=== PATIENT | male | born 1945 | race Caucasian/White ===

== ENCOUNTER → 2018-03-12 10:45 | Outpatient (BNVA) | payer MEDICARE, SELFPAY | PROVIDERS: PCP Family Medicine; Visit Provider Internal Medicine Interventional Cardiology | DX: I25.810 Atherosclerosis of coronary artery bypass graft(s) without angina pectoris (principal); Z95.0 Presence of cardiac pacemaker; R06.02 Shortness of breath; R53.83 Other fatigue; E78.5 Hyperlipidemia, unspecified; Q23.1 Congenital insufficiency of aortic valve; I70.0 Atherosclerosis of aorta; I10 Essential (primary) hypertension | CPT/HCPCS: 99214 ==

== ENCOUNTER 2018-03-12 11:42 | Outpatient (CLI) | payer MEDICARE, OTHER, SELFPAY | END 2018-03-12 12:02 | PROVIDERS: PCP Family Medicine; Visit Provider Internal Medicine Interventional Cardiology | DX: I25.10 Atherosclerotic heart disease of native coronary artery without angina pectoris (principal); I10 Essential (primary) hypertension; Z95.0 Presence of cardiac pacemaker | CPT/HCPCS: 93005; 93010 ==

== ENCOUNTER 2018-03-12 15:36 | Outpatient (CLI) | payer MEDICARE, SELFPAY ==
--- NOTE | 2018-03-12 12:04 | DI.RAD_ITS ---
SYMPTOM/DIAGNOSIS: CHEST PAIN, R07.9 PA AND LATERAL CHEST: Comparison is made with 12/19/14. The patient is now status post CABG and pacemaker placement. The heart size is normal. There is scarring at the left lung base. The right lung is clear. IMPRESSION: Left basilar scarring.
[2018-03-12 13:06] LABS: HCT 40.6 % (40.0-50.0); HGB 14.1 g/dL (13.5-17.5); Mean Corp. HGB Concentration 34.7 g/dL (32.0-36.0); Mean Corpuscular Hemoglobin 32.6 pg (27.0-33.0); Mean Platelet Volume 10.1 fL (8.0-11.0); Platelet Count 315 x1000/uL (130-400); RBC 4.32 m/cumm (4.50-6.00); RBC Distribution Width 12.5 % (11.8-14.1)
[2018-03-12 14:56] LABS: ALT 32 U/L (12-78); AST 22 U/L (15-37); Albumin 4.3 g/dL (3.4-5.0); Alkaline Phosphatase 93 U/L (46-116); Anion Gap 11.4 mmol/L (3-11); BUN 14 mg/dL (7-18); Bilirubin, Direct 0.15 mg/dL (0.00-0.20); Bilirubin, Total 0.7 mg/dL (0.2-1.0); CO2 26.6 mmol/L (21.0-32.0); CREATININE 0.97 mg/dL (0.70-1.30); Chloride 97 mmol/L (98-107); Potassium 4.7 mmol/L (3.5-5.1); Sodium 135 mmol/L (136-145); TSH 1.86 uIU/mL (0.358-3.74); Total Protein 7.7 g/dL (6.4-8.2)
[2018-03-12 15:09] LABS: Cholesterol 191 mg/dL (50-200); HDL Cholesterol 49 mg/dL (40-60); LDL CHOLESTEROL 96 mg/dL (<100); Triglyceride 340 mg/dL (30-150)
== END 2018-03-12 15:56 ==
PROVIDERS: PCP Family Medicine; Visit Provider Internal Medicine Interventional Cardiology
DX: I25.10 Atherosclerotic heart disease of native coronary artery without angina pectoris (principal); I10 Essential (primary) hypertension; E78.5 Hyperlipidemia, unspecified; R07.9 Chest pain, unspecified; Z95.1 Presence of aortocoronary bypass graft; J98.4 Other disorders of lung; Z95.0 Presence of cardiac pacemaker; R06.02 Shortness of breath; R53.83 Other fatigue; Q23.1 Congenital insufficiency of aortic valve; I70.0 Atherosclerosis of aorta
CPT/HCPCS: 36415; 80051; 80061; 80076; 83721; 84520; 85027; 99214; 71046; 82565; 84443; 93005; 93010

== ENCOUNTER 2018-03-21 00:02 | Outpatient (CLI) | payer MEDICARE, SELFPAY ==
--- NOTE | 2018-03-21 06:56 | MERGEMPI_ITS ---
*[facility]* *[facility]* [address] [place] [address] Myocardial Perfusion Imaging - SPECT Regadenoson Date of study: 03/21/2018 *PATIENT PRESENTATION* Height: 167.6cm (66in) Blood Pressure: Weight: 77.3kg (170lb) BSA: 1.91m^2 Referring physician: Kimo Winston Ordering physician: Mack Grayson MD Impressions: Abnormal study after pharmacologic stress. Summary: 1. Myocardial perfusion imaging: There is a small sized, mildly intense, fixed defect involving the septal and apical wall(s). . 2. The calculated left ventricular ejection fraction after stress: 55%. LV global systolic function is normal. There is dyskinesis involving the septal wall(s) of the left ventricle. 3. Baseline ECG: Ventricular paced rhythm. 4. Imaging information: gated. Image quality reduced due to diaphragmatic attenuation and subdiaphragmatic activity. Attenuation correction used. Indication: R06.02. History: Patient's presenting symptoms: asymptomatic. REASON FOR VISIT: PATIENT REPORTED MILD DYSPNEA ON EXERTION AND INCREASED FATIGUE DURING A CARDIOLOGY APPOINTMENT ON 03/12/18. EKG DURING THIS APPOINTMENT SHOWED VENTRICULAR PACING, RATE 98 BPM. 05/08/17 ECHOCARDIOGRAM: ESTIMATED EJECTION FRACTION WAS 55-60%. MILD HYPOKINESIS OF THE ANTEROSEPTAL AND APICAL MYOCARDIUM. MILD REGURGITATION OF AORTIC AND MITRAL VALVES. MILD-MODERATE REGURGITATION OF TRICUSPID VALVE. PAST MEDICAL HISTORY: CORONARY ARTERY DISEASE. NSTEMI NOVEMBER 2014. BRADYCARDIA AND WENCKEBACH TYPE BLOCK, S/P PACEMAKER (DDR MODE) PLACED DECEMBER 2014. HYPERTENSION. HYPERLIPIDEMIA. GOUT. ATHEROMATOUS AORTIC DISEASE NOTED ON 2014 JENNIFER. FAMILY HISTORY: FATHER, HEART DISEASE. SMOKING STATUS: 30 PACK YEAR SMOKING HISTORY. QUIT IN 1995. EXERCISE ROUTINE: DAILY RESISTANCE TRAINING WITH SOME CARDIO AT [facility] FOR THREE MONTHS OUT OF THE YEAR WHEN PATIENT IS IN [place]. Risk factors: Family history of coronary artery disease. Hypertension. Dyslipidemia. Cholesterol: 191mg/dl. HDL: 49mg/dl. LDL: 96mg/dl. Triglycerides: 340mg/dl. ALLERGIES: DEXTROMETHORPHAN, PHENYLEPHRINE. MEDICATIONS: METOPROLOL SUCCINATE ER 25MG, DAILY. LISINOPRIL 40MG, DAILY. ATORVASTATIN 40MG, DAILY. ASPIRIN 81MG, DAILY. AMLODIPINE 10MG, DAILY. Imaging Technique: Protocol: Minitradeadenoson. Acquisition: Gated SPECT; 1 day - rest/stress. The patient was imaged in the supine position. Attenuation correction used. Isotope administration: - Rest. Tc[99m]-sestamibi. Dose: 10mCi. Injection time: 09:05 AM. Injection to stress time: 00:45. - Stress. Tc[99m]-sestamibi. Dose: 32mCi. Injection time: 11:05 AM. 1-2 min before end of exercise Baseline ECG: VENTRICULAR PACED RHYTHM. HEART RATE 65 BPM. Ventricular paced rhythm. Stress protocol: +--------+--+ + + !Stage !HR!BP (mmHg) !Comments ! +--------+--+ + + !Baseline!65!144/82 (103)! ! +--------+--+ + + !1 min !85!144/78 (100)!Inject Regadenoson.! +--------+--+ + + !3 min !79!148/72 (97) ! ! +--------+--+ + + !6 min !72!132/66 (88) ! ! +--------+--+ + + * Stress results: The rate-pressure product for the peak heart rate and blood pressure was 80490in Hg/min. Stress ECG: STRESS TEST ENDED IN 6MIN WHEN ALL SYMPTOMS OF REGADENOSON INJECTION SUBSIDED. APPROPRIATE HEART RATE AND BLOOD PRESSURE RESPONSE TO REGADENOSON INJECTION. NO ECTOPY NOTED. NO ANGINA REPORTED. Myocardial perfusion: Imaging information: gated. Image quality reduced due to diaphragmatic attenuation and subdiaphragmatic activity. Left ventricular size is normal. There is a small sized, mildly intense, fixed defect involving the septal and apical wall(s). . Ventricular Function (Wall Motion): The calculated left ventricular ejection fraction after stress: 55%. LV global systolic function is normal. There is dyskinesis involving the septal wall(s) of the left ventricle. Study data: Kimo Winston MD supervised and was readily available during the procedure. This study was interpreted by [facility]. Study status: Routine. Consent: The risks, benefits, and alternatives to the procedure were explained to the patient and informed consent was obtained. Procedure: Initial setup. A baseline ECG was recorded. Surface ECG leads and manual cuff blood pressure measurements were monitored. Heart sounds: Normal. Lung sounds: Normal. Regadenoson stress test. Stress testing was performed, with regadenoson by intravenous bolus, for a total dose of 0.4mgover 10.00sec, followed by a 5ml saline flush. The infusion was terminated due to per protocol. Study completion: All catheters inserted during the procedure were removed. The patient tolerated the procedure well and was discharged from the lab. Discharge: The patient left the laboratory in stable condition. Birthdate: Patient birthdate: 1945. Sex: Gender: male. Study date: Study date: 03/21/2018. Study time: 06:56 AM. Signature Documentation: - The imaging portion of this study was interpreted by Nuclear Boiler Coverer Helper Kimo Winston MD. - The imaging portion of this study was interpreted by Nuclear Radiologist Pearl Campbell MD. Electronically signed by Kimo Winston 03/21/2018 15:29
[2018-03-21] MEDS: Regadenoson 0.4 MG/5 ML SYR IVP (10:51)
== END 2018-03-21 00:22 ==
PROVIDERS: PCP Family Medicine; Visit Provider Internal Medicine Interventional Cardiology
DX: R06.09 Other forms of dyspnea (principal); R53.83 Other fatigue; R94.30 Abnormal result of cardiovascular function study, unspecified; I25.2 Old myocardial infarction
CPT/HCPCS: 78452; 93016; 93018; 93017; J2785

== ENCOUNTER 2018-03-27 00:31 | Outpatient (CLI) | payer MEDICARE, SELFPAY ==
--- NOTE | 2018-03-27 14:00 | MERGE_ITS ---
*[facility]* *[facility]* [address] [place] [address] Date of study: 03/27/2018 Transthoracic Echocardiography M-mode, complete 2D, complete spectral Doppler, and color Doppler *STUDY CONCLUSIONS* Summary: 1. Left ventricle: The cavity size was normal. Wall thickness was normal. Systolic function was normal. The estimated ejection fraction was 55-60%. Wall motion was normal; there were no regional wall motion abnormalities. Findings consistent with diastolic dysfunction. There was no evidence of elevated ventricular filling pressure by Doppler parameters. 2. Ventricular septum: Septal motion showed abnormal function and dyssynergy. 3. Aortic valve: Bicuspid; mildly thickened, mildly calcified leaflets; anterior raphe present; fusion of the right-left coronary commissure. Valve mobility was restricted. There was mild stenosis. There was trivial regurgitation. Peak velocity (S): 1.8m/sec. Mean gradient (S): 7.1mm Hg. Valve area (VTI): 1.7cm^2. 4. Aortic root: The aortic root was mildly dilated. 5. Right ventricle: The cavity size was normal. Wall thickness was normal. Pacer wire noted in right ventricle. Systolic function was normal. 6. Right atrium: The atrium was dilated. 7. Pulmonary arteries: Pulmonary systolic pressure was within the normal range, in the range of 30mm Hg to 35mm Hg. *PATIENT PRESENTATION* Height: 167.6cm ((66in) ) S/D Pressure: 137 / 75 Weight: 77.1kg ((169.6lb) ) BSA: 1.91m^2 Test start time: 02:06 PM. Test stop time: 02:55 PM. ORDERING Mack Grayson MD REFERRING Mack Grayson MD PERFORMING Unknown PERFORMING [facility] PATIENT PLACEMENT COORDINATOR RT Michelle Dixon)(CT), [facility] *PROCEDURE DATA* Procedure information: This study was interpreted by [facility]. Pertinent images and digital data are archived for permanent storage and are available for subsequent review. Comparison was made to the study of 05/08/2017. Study status: Routine. Transthoracic echocardiography. M-mode, complete 2D, complete spectral Doppler, and color Doppler. A Transthoracic Echocardiogram was performed. Scanning was performed from the parasternal, apical, subcostal, and suprasternal notch acoustic windows. Images were obtained using an [id number] cardiac ultrasound machine. Image quality was adequate. Study completion: The patient tolerated the procedure well. There were no complications. History: PMH: SOB, CAD, BICUSPID AOV. *CARDIAC ANATOMY* Left ventricle: The cavity size was normal. Wall thickness was normal. Systolic function was normal. The estimated ejection fraction was 55-60%. Wall motion was normal; there were no regional wall motion abnormalities. Findings consistent with diastolic dysfunction. There was no evidence of elevated ventricular filling pressure by Doppler parameters. Aortic valve: Bicuspid; mildly thickened, mildly calcified leaflets; anterior raphe present; fusion of the right-left coronary commissure. Valve mobility was restricted. Doppler: There was mild stenosis. There was trivial regurgitation. VTI ratio of LVOT to aortic valve: 0.54. Valve area (VTI): 1.7cm^2. Indexed valve area (VTI): 0.9cm^2/m^2. Peak velocity ratio of LVOT to aortic valve: 0.47. Valve area (Vmax): 1.5cm^2. Indexed valve area (Vmax): 0.8cm^2/m^2. Mean velocity ratio of LVOT to aortic valve: 0.49. Valve area (Vmean): 1.5cm^2. Indexed valve area (Vmean): 0.8cm^2/m^2. Mean gradient (S): 7.1mm Hg. Peak gradient (S): 12.4mm Hg. Aorta: Aortic root: The aortic root was mildly dilated. Ascending aorta: The ascending aorta was normal in size. Aortic arch: The aortic arch was normal in size. Mitral valve: Structurally normal valve. Mobility was not restricted. Doppler: Transvalvular velocity was within the normal range. There was no evidence for stenosis. There was no significant regurgitation. Valve area by pressure half-time: 4.2cm^2. Indexed valve area by pressure half-time: 2.2cm^2/m^2. Left atrium: The atrium was normal in size. Right ventricle: The cavity size was normal. Wall thickness was normal. Pacer wire noted in right ventricle. Systolic function was normal. Ventricular septum: Septal motion showed abnormal function and dyssynergy. Pulmonic valve: Doppler: Transvalvular velocity was within the normal range. There was no evidence for stenosis. There was no significant regurgitation. Peak gradient (S): 2.8mm Hg. Tricuspid valve: Structurally normal valve. Doppler: Transvalvular velocity was within the normal range. There was no evidence for stenosis. There was trivial regurgitation. Pulmonary artery: Pulmonary systolic pressure was within the normal range, in the range of 30mm Hg to 35mm Hg. Right atrium: The atrium was dilated. Pericardium: There was no pericardial effusion. Systemic veins: Inferior vena cava: Well visualized. The vessel was patent and normal in size. The respirophasic diameter changes were in the normal range (greater than or equal to 50%). Baseline ECG: Paced rhythm. Measurements Left ventricle Value 05/08/2017 Reference LV ID, ED, PLAX 5.2 cm 4.8 3.5 - 6.0 LV ID, ES, PLAX 3.6 cm 3.2 2.1 - 4.0 LV PW thickness, ED, PLAX 1.0 cm 1.0 LV end-diastolic volume, 75 ml 74 1-p A2C LV ejection fraction, 1-p 55 % 56 A2C LV end-diastolic volume, 68 ml 66 1-p A4C LV ejection fraction, 1-p 50 % 52 A4C LV e', lateral 0.066 m/sec LV E/e', lateral 10 LV e', medial 0.068 m/sec LV E/e', medial 9 LV e', average 0.067 m/sec LV E/e', average 10 Ventricular septum Value 05/08/2017 Reference IVS thickness, ED, PLAX 0.9 cm 1.0 LVOT Value 05/08/2017 Reference LVOT ID, A-P 2.0 cm 2.0 LVOT area 3.1 cm^2 3 LVOT peak velocity, S 0.83 m/sec 0.88 LVOT mean velocity, S 0.63 m/sec LVOT VTI, S 18.0 cm 17.8 LVOT peak gradient, S 2.7 mm Hg LVOT mean gradient, S 1.7 mm Hg 1.6 Stroke volume (SV), LVOT 55 ml DP Stroke index (SV/bsa), 29 ml/m^2 LVOT DP Aortic valve Value 05/08/2017 Reference Aortic valve peak 1.8 m/sec 1.6 velocity, S Aortic valve mean 1.29 m/sec 0.01 velocity, S Aortic valve VTI, S 33.0 cm Aortic mean gradient, S 7.1 mm Hg 5.6 Aortic peak gradient, S 12.4 mm Hg 10.1 VTI ratio, LVOT/AV 0.54 Aortic valve area, VTI 1.7 cm^2 1.8 Velocity ratio, peak, 0.47 0.55 LVOT/AV Aortic valve area, peak 1.5 cm^2 1.7 velocity Velocity ratio, mean, 0.49 LVOT/AV Aortic valve area, mean 1.5 cm^2 velocity Aortic valve area/bsa, 0.8 cm^2/m^2 mean velocity Aorta Value 05/08/2017 Reference Aortic root ID, ED 3.9 cm Ascending aorta ID, A-P, S 3.5 cm 3.4 RVOT Value 05/08/2017 Reference RVOT VTI, S 11.0 cm Left atrium Value 05/08/2017 Reference LA ID, A-P, ES 3.1 cm LA ID/bsa, A-P 1.6 cm/m^2 <=2.2 LA area, ES, A4C 17.9 cm^2 18 8.8 - 23.4 LA area, ES, A2C 16 cm^2 LA volume/bsa, ES, 1-p A4C 31 ml/m^2 LA volume, ES, 2-p 50 ml LA volume/bsa, ES, 2-p 26 ml/m^2 LA/aortic root ratio 0.79 0.86 Mitral valve Value 05/08/2017 Reference Mitral E-wave peak 0.65 m/sec 0.61 velocity Mitral A-wave peak 0.85 m/sec 0.69 velocity Mitral deceleration time 181 ms 232 150 - 230 Mitral pressure half-time 53 ms 67 Mitral E/A ratio, peak 0.76 0.88 Mitral valve area, PHT, DP 4.2 cm^2 3.3 Tricuspid valve Value 05/08/2017 Reference Tricuspid regurg peak 2.5 m/sec 2.3 velocity Tricuspid peak RV-RA 24.7 mm Hg 21.7 gradient Right atrium Value 05/08/2017 Reference RA area, ES, A4C (H) 20.5 cm^2 8.3 - 19.5 Pulmonic valve Value 05/08/2017 Reference Pulmonic peak gradient, S 2.8 mm Hg 2 Legend: (L) and (H) jeremi values outside specified reference range. I have personally reviewed the images and have reviewed and edited the reported findings. Electronically signed by Kimo Winston 03/27/2018 15:51
== END 2018-03-27 00:51 ==
PROVIDERS: PCP Family Medicine; Visit Provider Internal Medicine Interventional Cardiology
DX: R06.02 Shortness of breath (principal); I25.10 Atherosclerotic heart disease of native coronary artery without angina pectoris; I35.2 Nonrheumatic aortic (valve) stenosis with insufficiency; Q23.1 Congenital insufficiency of aortic valve; Z95.0 Presence of cardiac pacemaker; I10 Essential (primary) hypertension
CPT/HCPCS: 93306

== ENCOUNTER 2018-04-09 10:12 | Outpatient (CLI) | payer MEDICARE, OTHER, SELFPAY | END 2018-04-09 10:32 | PROVIDERS: PCP Family Medicine; Visit Provider Internal Medicine Interventional Cardiology | DX: I25.810 Atherosclerosis of coronary artery bypass graft(s) without angina pectoris (principal); Z95.0 Presence of cardiac pacemaker; R06.02 Shortness of breath; R53.83 Other fatigue; E78.5 Hyperlipidemia, unspecified; I35.9 Nonrheumatic aortic valve disorder, unspecified | CPT/HCPCS: 93005; 93010; 99213 ==

== ENCOUNTER 2018-08-27 10:13 | Outpatient (CLI) | payer MEDICARE, OTHER, SELFPAY ==
[2018-08-27 11:21] LABS: ALT 34 U/L (12-78); AST 26 U/L (15-37); Alkaline Phosphatase 84 U/L (46-116); Bilirubin, Total 0.6 mg/dL (0.2-1.0); Cholesterol 152 mg/dL (50-200); HDL Cholesterol 42 mg/dL (40-60); LDL CHOLESTEROL 77 mg/dL (<100); Total Protein 7.2 g/dL (6.4-8.2); Triglyceride 136 mg/dL (30-150)
[2018-08-27 11:29] LABS: Bilirubin, Direct 0.15 mg/dL (0.00-0.20)
== END 2018-08-27 10:33 ==
PROVIDERS: PCP Family Medicine; Visit Provider Internal Medicine Interventional Cardiology
DX: E78.5 Hyperlipidemia, unspecified (principal); I10 Essential (primary) hypertension; I25.10 Atherosclerotic heart disease of native coronary artery without angina pectoris
CPT/HCPCS: 36415; 80061; 80076; 83721

== ENCOUNTER 2018-09-10 08:04 | Outpatient (CLI) | payer MEDICARE, OTHER, SELFPAY | END 2018-09-10 08:24 | PROVIDERS: PCP Family Medicine; Visit Provider Internal Medicine Interventional Cardiology | DX: I25.10 Atherosclerotic heart disease of native coronary artery without angina pectoris (principal); Z95.0 Presence of cardiac pacemaker; I10 Essential (primary) hypertension; R06.02 Shortness of breath; E78.5 Hyperlipidemia, unspecified; I35.9 Nonrheumatic aortic valve disorder, unspecified; Q23.1 Congenital insufficiency of aortic valve | CPT/HCPCS: 93005; 93010; 99213 ==

== ENCOUNTER 2019-10-21 02:00 | Outpatient (CLI) | payer MEDICARE, SELFPAY ==
--- NOTE | 2019-10-21 08:45 | DI.US_ITS ---
APPROVED REPORT EXAM: Comprehensive 2D, Doppler, and color-flow Echocardiogram Patient Location: Out-Patient Client Account Manager: Caterina Albarran RDCS (AE) Indications: Bicuspid Aortic Valve, Aortic Insufficiency Other Information Study Quality: Conclusion Normal left ventricular chamber size and wall thickness. There is mild global hypokinesis with an es timated ejection fraction of 50 to 55%. There is stage I diastolic dysfunction There is no chamber enlargement Right ventricular size and systolic function is normal Aortic valve is sclerotic. It is probably bicuspid. There is no significant aortic stenosis (mean g radient 7 mmHg) trace aortic regurgitation There is mitral annular calcification. There is trace mitral regurgitation The cuspid valve is structurally normal. There is trace to mild tricuspid regurgitation The pulmonic valve is not well visualized. The ascending aorta is borderline dilated measuring 3.6 cm Wall motion Left Ventricle The left ventricle is normal size. Left ventricular systolic function is borderline. There is normal left ventricular wall thickness. There is global hypokinesis of the left ventricle. Transmitral Doppl er flow pattern suggests impaired LV relaxation. There is no ventricular septal defect visualized. LV EF is 50-55%. Right Ventricle The right ventricle is normal size. The right ventricular systolic function is normal. The RVSP is 21 .9mmHg. Atria The left atrium size is normal. The right atrium size is normal. The interatrial septum is intact wit h no evidence for an atrial septal defect. Aortic Valve The Aortic valve is sclerotic. Aortic valve is bicuspid. There is no aortic valvular stenosis. Mean g radient is 7 mmHg Trace aortic regurgitation. Mitral Valve Moderate mitral annular calcification. No evidence of mitral valve stenosis. Trace mitral regurgitati on. Tricuspid Valve The tricuspid valve is normal in structure. There is no tricuspid valve stenosis. Trace to mild tricu spid regurgitation. Pulmonic Valve Pulmonic valve is not well visualized. There is no pulmonic valvular stenosis. There is no pulmonic v alvular regurgitation. Great Vessels The aortic root is normal in size. Ascending aorta measures 3.6 cm IVC is normal in size and collapse s >50% with inspiration. Pericardium There is no pericardial effusion. There is no pleural effusion. 2D Dimensions IVSD d PLAX 0.90 cm M: 0.6-1.2 LV Vol A2C d MOD 88.5 mL LVPW d PLAX 0.95 cm M: 0.6 - 1.2 LV Vol A4C d MOD 69.5 mL LVID d PLAX 4.89 cm M: 4.2 - 5.8 LA vol/ BSA A2C s A-L 34.0 mL/m2 LVDs 3.85 cm M: 2.5 - 4.0 LA vol/ BSA A4C s A-L 13.8 mL/m2 Ao Root d 3.38 cm M: 3.1 - 3.7 LA Vol/ BSA Biplane s A-L 22.0 mL/m2 RA Area A4C 14.68 cm2 LA Area A4C s MOD 11.82 cm2 RA Vol/ BSA A4C s A-L 22.2 mL/m2 LA Area A2C s MOD 18.28 cm2 Ao Asc Diam d 3.64 cm M: 2.6 - 3.4 LV EF A4C MOD 42.2 % LV EF Teichholz 42.2 % LV EF A2C MOD 41.4 % LVEF (Mar's) 42.69 % M: 52 - 72 LV EF Biplane MOD 42.7 % LV Volume 62.73 mL M: 62 - 150 SV 34.56 mL LV Volume Index 34.46 mL/m2 M: 34 - 74 SV Index 19.00 mL/m2 LV Vol Biplane MOD 81.0 mL FS 20.75 % M-Mode TAPSE 2.15 cm (M/F) >1.7 LV Diastology MV E' medial 0.063 (>0.07 m/s) E/A Ratio 0.8 LV E/e MED 7.40 (<14) MV E Vmax 0.46 (0.4-1.3 m/s) MV E' lateral 0.051 (>0.1 m/s) MV A Vmax 0.60 (0.4-1.3 m/s) LV E/e LAT 9.00 (<14) MV E/A Ratio 0.74 MV E/E' medial 7.40 MV E/E' lateral 9.05 Aortic Valve LVOT Area 2.99 cm2 AoV Area Vmax 1.47 cm2 LVOT Vmax 0.78 m/s AoV Area/ BSA (Vmax) 0.81 cm2/m2 LVOT Mean Juventino. 0.52 m/s JONH Mean Juventino. 1.20 cm2 LVOT Peak Grad 2.4 mmHg JONH Mean Juventino. Index 0.66 cm2/m2 LVOT Mean Grad 1.3 mmHg LVOT VTI 0.157 m LVOT Diam s 1.95 cm AoV Vmax 1.59 m/s Velocity Ratio 0.49 AoV Mean Juventino. 1.30 m/s AoV Peak Grad 10.1 mmHg LVOT SV 46.88 mL AoV Mean Grad 7.1 mmHg AoV VTI 0.306 m AoV Area VTI 1.53 cm2 AoV Area/ BSA (VTI) 0.84 cm/m2 Mitral Valve MV DT 215 (160-240 msec) MV PHT 62 msec MV Area PHT 3.52 cm2 Pulmonary Valve PV Vmax 0.76 (0.5-1.5 m/s) RVOT Peak Gr. 0.93 mmHg PV Peak Grad 2.3 mmHg RVOT Mean Gr. 0.45 mmHg PV Mean Grad 1.2 mmHg RVOT VTI 0.098 m PV VTI 0.143 m RVOT Vmax 0.48 m/s Tricuspid Valve TR Peak Grad 18.9 mmHg TR Vmax 2.18 m/s RA Pressure 3.00 mmHg RVSP (TR) 21.9 mmHg
== END 2019-10-21 02:20 ==
PROVIDERS: PCP Family Medicine; Visit Provider Internal Medicine Cardiovascular Disease
DX: I25.10 Atherosclerotic heart disease of native coronary artery without angina pectoris (principal); I50.30 Unspecified diastolic (congestive) heart failure; I35.1 Nonrheumatic aortic (valve) insufficiency; I10 Essential (primary) hypertension
CPT/HCPCS: 93306

== ENCOUNTER → 2019-10-25 09:30 | Outpatient (BNVA) | payer MEDICARE, SELFPAY | PROVIDERS: PCP Family Medicine; Referring Provider Family Medicine; Visit Provider Internal Medicine Cardiovascular Disease | DX: I25.10 Atherosclerotic heart disease of native coronary artery without angina pectoris (principal); I10 Essential (primary) hypertension; I35.9 Nonrheumatic aortic valve disorder, unspecified | CPT/HCPCS: 99213 ==

== ENCOUNTER → 2020-10-30 09:54 | Outpatient (BNVA) | payer MEDICARE, SELFPAY | PROVIDERS: Referring Provider Family Medicine; Visit Provider Internal Medicine Cardiovascular Disease | DX: I25.810 Atherosclerosis of coronary artery bypass graft(s) without angina pectoris (principal); I35.9 Nonrheumatic aortic valve disorder, unspecified; Z95.0 Presence of cardiac pacemaker; I10 Essential (primary) hypertension | CPT/HCPCS: 99214 ==

== ENCOUNTER 2021-10-26 21:18 | Emergency (ER) | payer MEDICARE, SELFPAY ==
[2021-10-26] VITALS (17 sets, daily range): PULSE 64–140; RESP 16–18; TEMP 37; O2SAT 99
--- NOTE | 2021-10-26 21:15 | RT.EKG_ITS ---
APPROVED REPORT Exam: Resting ECG Reason for Exam: chest pain Patient Location: E HR:68 bpm ECG Measurements Heart Rate 68 AXIS AK 191 P 33 QRSd 165 QRS -60 QT 451 T 39 QTc 481 Conclusion Atrial-sensed ventricular-paced rhythm...ventricular pacing tracks p-waves I have reviewed and interpreted ECG and agree with software generated interpretation.
--- NOTE | 2021-10-26 21:30 | DI.RAD_ITS ---
Exam(s) XR PORTABLE CHEST AP EXAM: XR PORTABLE CHEST AP CLINICAL HISTORY: epigastric pain, cardiac hx. TECHNIQUE: 2D digital imaging was performed. COMPARISON: CR XR CHEST 2V PA LATERAL from 03/12/2018 FINDINGS: Single AP portable view. Sternotomy wires and bipolar left subclavian pacemaker again noted lead tips in are in RV, unchanged. Heart size is upper normal. The mediastinum is not widened. Right lung is clear. Scarring in the left lung base both pulmonary and pleural is unchanged 2017. No pulmonary edema. IMPRESSION: No acute pulmonary findings on this single AP portable view of the chest. Left lung base scarring and left pleural scarring is unchanged from February 2018 DATA REPOSITORY: RADIATION DOSE DELIVERED: All CT scans at this facility use at least one of these dose optimization techniques: automated exposure control; mA and/or kV adjustment per patient size (includes targeted e xams where dose is matched to clinical indication); or iterative reconstruction.
[2021-10-26 22:00] LABS: Abs Immature Grans 0.05 10^3/uL (0.0-0.06); Absolute Basophil Count 0.04 10^3/uL (0.0-0.2); Absolute Eosinophil Count 0.14 10^3/uL (0.0-0.7); Absolute Monocyte Count 0.59 10^3/uL (0.1-0.8); Absolute Neutrophil Count 3.27 10^3/uL (1.2-6.7); Basophils % 0.7; Eosinophils % 2.5; HCT 33.3 % (40.0-50.0); HGB 11.9 g/dL (13.5-17.5); Immature Grans % 0.9; Lymphocytes % 28.1; MCH 33.2 pg (27.0-33.0); MCHC 35.7 % (32.0-36.0); MCV 93 fL (80-95); MPV 9.5 fL (8.0-11.0); Monocytes % 10.4; Neutrophils % 57.4; Platelet Count 231 10^3/uL (130-400); RBC 3.58 10^6/uL (4.36-5.78); RDW 12.7 % (11.8-14.1); RDW-SD 43.8 fL; WBC 5.69 10^3/uL (4.4-10.8)
[2021-10-26 22:16] LABS: Lipase 74 U/L (73-393)
[2021-10-26 22:17] LABS: ALT 26 U/L (16-63); AST 22 U/L (15-37); Albumin 3.6 g/dL (3.4-5.0); Alkaline Phosphatase 98 U/L (46-116); Anion Gap 10.2 mmol/L (3-11); BUN 11 mg/dL (7-18); Bilirubin, Total 0.5 mg/dL (0.2-1.0); CO2 22.8 mmol/L (21.0-32.0); CREATININE 0.9 mg/dL (0.70-1.30); Calcium 8.3 mg/dL (8.5-10.1); Chloride 99 mmol/L (98-107); Glucose 96 mg/dL (74-106); Potassium 3.9 mmol/L (3.5-5.1); Sodium 132 mmol/L (136-145); Total Protein 7.2 g/dL (6.4-8.2); Troponin I < 50 ng/L (<or=60)
--- NOTE | 2021-10-26 22:21 | W.ED.GENAD ---
Discharge Plan Disposition Patient Disposition: HOME Condition: Good Discharge Details Chief Complaint: Chest Pain Clinical Impression: Acute epigastric pain [facility] Provider: Luigi Brush Home Meds and New Rx's Prescriptions: No Action polyethylene glycol 3350 [Miralax] 17 gram/dose powder 17 g PO DAILY colchicine [Colcrys] 0.6 mg tablet 0.6 mg PO DAILY Qty: 10 0RF Rx Instructions: Day 1: Take two tabs at once, then 1 tab 1 hr later. Day 2-5: once or twice daily until pain improves acetaminophen 500 MG tablet 2 tab PO Q6H PRN aspirin [Aspirin Low-Strength] 81 MG tablet,chewable 1 tab PO DAILY amlodipine 10 mg tablet 10 mg PO DAILY Qty: 90 3RF lisinopril 40 mg tablet 40 mg PO DAILY Qty: 90 4RF atorvastatin 40 mg tablet 60 mg PO DAILY Qty: 135 4RF metoprolol succinate 25 mg tablet extended release 24 hr 25 mg PO DAILY Qty: 90 3RF Discharge Instructions Instructions: Chest Pain (ED) Additional Instructions: At this time the pain that you had in the epigastric region does not appear to be related to your heart. Your heart work-up remained stable. However because of your history of cardiac disease and your risk factors it is critically important they follow-up closely with your loan and credit manager Dr. Roberts. In the meantime please avoid any spicy or greasy foods. Please take Tums if you develop any mild burning sensation in your epigastric region. If you notice any worsening of your symptoms, or any new symptoms such as vomiting, diarrhea, fever, chills, shortness of breath, chest pain, numbness, weakness, or fainting , please return immediately to the emergency department for reevaluation. Please follow up with your primary care provider as soon as possible for reassessment and reevaluation. As always, it was a pleasure participating in your medical care today. Referrals: Gaviota Roberts MD [ [facility] STAFF PHYSICIAN] - Medical Decision Making this is a 76-year-old male with a past medical history of open heart surgery in 2015, pacemaker secondary to bradycardia, hypertension, high cholesterol, who presents today for epigastric achiness. Patient states that 1 week ago he had an episode of notable epigastric pressure and pain that occurred after eating. It went away on its own after a few minutes. He then had a repeat episode tonight while eating dinner. It lasted about 15 to 20 minutes. It resolved by the time EMS brought him to the emergency department. He is denies any tearing or ripping sensation. He describes it as a burning-like sensation in the epigastrium. He had nausea but no vomiting. He denies eating anything particularly spicy. He had some lettuce for food. Patient states that when he had his previous heart attack he had shortness of breath with exertion and notable chest tightness, and that today's symptoms are completely different than that. He denies any tearing or ripping sensation, arm neck or shoulder pain, numbness tingling or weakness. He denies any syncope. No other complaints at this time. EMS did give the patient 325 of aspirin. No nitroglycerin was administered as the pain at resolved to a 1 out of 10 by the time they arrived. Physical exam demonstrates a notably well-appearing male. EKG shows a paced rhythm with good capture and no other abnormalities otherwise. Symptoms certainly appear inconsistent with ACS at this time, however because of his history of heart disease we will evaluate with both initial and delta troponin. Patient does have follow-up with his loan and credit manager on Monday which is in 3 days we will continue to monitor closely. 12:59 AM Laboratory work-up has returned, initial and delta troponin are both normal. Lipase is normal. Patient remains completely pain-free, and feels well. Symptoms at this time appear notably inconsistent with ACS, and also inconsistent with his prior episodes of cardiac disease. On reassessment discussed discharge with patient, and he would like to go home. He will follow-up closely with his loan and credit manager at his scheduled appointment in 2 to 3 days. Discussed red flags for which to return. I have extensively reviewed the treatment plan and discharge instructions with the patient and their family. I have addressed all patient concerns at this time. The patient and family was made aware of what symptoms to monitor for that would warrant a return to the emergency department. Discussed the plan with the patient and family, they demonstrate verbal understanding and agreement with our assessment and plan at this time. The documentation in this chart was dictated using [employer]. dictation software. Please excuse any dictation errors. EKG 21: 26 Atrial sensed ventricular paced rhythm, good capture, negative for [place] FINDINGS: Tubes, catheters and devices: Monitoring wires noted. Pacemaker noted from the left. Lungs: Mild chronic linear opacity noted at the left lung base. Lungs are otherwise clear. No consolidation. No pulmonary vascular congestion. Pleural spaces: Unremarkable. No pleural effusion. No pneumothorax. Heart/Mediastinum: No cardiomegaly. Normal mediastinal contours. Diaphragm: Tenting and distortion of the left hemidiaphragm is unchanged from the previous study. Bones/joints: Sternotomy wires noted. IMPRESSION: No acute cardiopulmonary abnormality. Thank you for allowing us to participate in the care of your patient. Dictated and Authenticated by: Mack Hernandez MD 10/26/2021 11:06 PM Eastern Time ([place] & [place]) HPI General Date/Time Provider Initiated Documentation: 10/26/21 21:29. HPI Narrative: this is a 76-year-old male with a past medical history of open heart surgery in 2015, pacemaker secondary to bradycardia, hypertension, high cholesterol, who presents today for epigastric achiness. Patient states that 1 week ago he had an episode of notable epigastric pressure and pain that occurred after eating. It went away on its own after a few minutes. He then had a repeat episode tonight while eating dinner. It lasted about 15 to 20 minutes. It resolved by the time EMS brought him to the emergency department. He is denies any tearing or ripping sensation. He describes it as a burning-like sensation in the epigastrium. He had nausea but no vomiting. He denies eating anything particularly spicy. He had some lettuce for food. Patient states that when he had his previous heart attack he had shortness of breath with exertion and notable chest tightness, and that today's symptoms are completely different than that. He denies any tearing or ripping sensation, arm neck or shoulder pain, numbness tingling or weakness. He denies any syncope. No other complaints at this time. EMS did give the patient 325 of aspirin. No nitroglycerin was administered as the pain at resolved to a 1 out of 10 by the time they arrived. Related Data Home Medications Medication Instructions Recorded Confirmed acetaminophen 500 mg tablet 2 tab PO Q6H PRN 12/30/14 03/23/21 aspirin 81 mg chewable tablet 1 tab PO DAILY 12/30/14 03/23/21 (Aspirin Low-Strength) polyethylene glycol 3350 17 17 g PO DAILY 10/30/20 03/23/21 gram/dose oral powder (Miralax) amlodipine 10 mg tablet 10 mg PO DAILY #90 tabs 12/01/20 03/23/21 lisinopril 40 mg tablet 40 mg PO DAILY #90 tab-caps 12/01/20 03/23/21 colchicine 0.6 mg tablet (Colcrys) 0.6 mg PO DAILY #10 tabs 03/23/21 03/23/21 atorvastatin 40 mg tablet 60 mg PO DAILY #135 tabs 10/01/21 metoprolol succinate 25 mg 25 mg PO DAILY #90 tabs 10/01/21 tablet,extended release 24 hr Previous Rx's Medication Instructions Recorded amlodipine 10 mg tablet 10 mg PO DAILY #90 tabs 12/01/20 lisinopril 40 mg tablet 40 mg PO DAILY #90 tab-caps 12/01/20 colchicine 0.6 mg tablet (Colcrys) 0.6 mg PO DAILY #10 tabs 03/23/21 atorvastatin 40 mg tablet 60 mg PO DAILY #135 tabs 10/01/21 metoprolol succinate 25 mg 25 mg PO DAILY #90 tabs 10/01/21 tablet,extended release 24 hr Allergies Allergy/AdvReac Type Severity Reaction Status Date / Time dextromethorphan Allergy Intermediate Hives and Verified 03/23/21 15:09 facial swelling phenylephrine Allergy Intermediate Hives and Verified 03/23/21 15:09 facial swelling General Stated Complaint: Chest Pain LEVON: 3 Review of Systems All systems reviewed & are unremarkable except as noted in HPI and below PFSH All Active Problems (Updated 10/27/21 @ 00:59 by Luigi Brush DO) Acute epigastric pain (Acute) Aortic valve disorder (Acute) Spinal stenosis (Acute 10/21/13) Surgery 08/2013 Hyperlipidemia (Acute) Essential hypertension (Acute 02/27/13) Coronary artery disease involving [place] coronary artery of [place] heart without angina pectoris (Acute 04/07/15) Bradycardia (Acute 10/21/13) [place]enckeback/ [place] Type 1! Actinic keratosis (Acute) Surgical History Circumcision Tonsillectomy and adenoidectomy Family History Mother Personal history of malignant neoplasm LIVER Father Heart disease Grandfather No problems noted. Grandfather No problems noted. Grandmother No problems noted. Grandmother No problems noted. Social History Smoking/Tobacco Use Status: Former Tobacco Use Smoking risk assessment performed?: Yes Alcohol Intake: current Alcohol Intake frequency: 0-2 drinks per day Alcohol type: beer Drug use: Never Substance use type: does not use Do you feel safe at home: Yes Do you feel safe in your relationship?: Yes Exam Narrative Exam Narrative: 1.Const: Well-nourished, Well-developed, appearing stated age 2.Eyes: PERRL, no conjunctival injection, and symmetrical lids. 3.ENT: Atraumatic external nose and ears. Moist MM. Neck: Symmetric, trachea midline, No thyromegaly. 4.CVS: +S1/S2, No murmurs or gallops. Peripheral pulses 2+ and equal in all extremities. Brisk capillary refill in all extremities. 5.RESP: Unlabored respiratory effort. Clear to auscultation bilaterally. No wheezes rales or rhonchi 6.GI: Soft, Nontender/Nondistended, No hepatosplenomegaly. No guarding or rebound. 7.MSK: Normocephalic/Atraumatic, Extremities w/o deformity or ttp No cyanosis or clubbing, Normal movement of all extremities 8.Skin: Warm, Dry. No rashes or lesions. 9.Neuro: driver/merchandiser II-XII grossly intact. Sensation grossly intact, no focal neurologic deficits. 10.Psych: (AAO) x3. Appropriate mood and affect Course Vital Signs Vital signs: Vital Signs Temperature 37.0 C 10/26/21 21:19 Pulse 70 10/26/21 21:19 Respiratory Rate 18 10/26/21 21:19 Pulse Oximetry 99 10/26/21 21:19 Temperature 37.0 C 10/26/21 21:19 Temperature Source Temporal Artery Scan 10/26/21 21:19 Pulse 70 10/26/21 21:19 Respiratory Rate 18 10/26/21 21:24 Respiratory Effort Non-Labored 10/26/21 21:24 Respiratory Depth Normal 10/26/21 21:24 Respiratory Pattern Normal 10/26/21 21:24 Blood Pressure Position Supine 10/26/21 21:19 Pulse Oximetry 99 10/26/21 21:19 Oxygen Delivery Method Room Air 10/26/21 21:19 Oxygen Flow Rate 0 10/26/21 21:19 Pain Level 1 10/26/21 21:19 Lab/Test Results Lab/Test Results: Laboratory Tests Range/Units 10/26/21 10/26/21 10/26/21 21:55 21:55 21:55 WBC (4.4-10.8) 10^3/uL 5.69 RBC (4.36-5.78) 10^6/uL 3.58 L Hgb (13.5-17.5) g/dL 11.9 L Hct (40.0-50.0) % 33.3 L MCV (80-95) fL 93 MCH (27.0-33.0) pg 33.2 H MCHC (32.0-36.0) % 35.7 RDW (11.8-14.1) % 12.7 Plt Count (130-400) 10^3/uL 231 MPV (8.0-11.0) fL 9.5 Immature Gran % 0.9 Neutrophils % 57.4 Lymphocytes % 28.1 Monocytes % 10.4 Eosinophils % 2.5 Basophils % 0.7 Nucleated RBC % (0.0-0.3) % 0.0 Absolute Neutrophils (1.2-6.7) 10^3/uL 3.27 Absolute Lymphocytes (1.2-3.4) 10^3/uL 1.60 Absolute Monocytes (0.1-0.8) 10^3/uL 0.59 Absolute Eosinophils (0.0-0.7) 10^3/uL 0.14 Absolute Basophils (0.0-0.2) 10^3/uL 0.04 Sodium (136-145) mmol/L 132 L Potassium (3.5-5.1) mmol/L 3.9 Chloride (98-107) mmol/L 99 Carbon Dioxide (21.0-32.0) mmol/L 22.8 Anion Gap (3-11) mmol/L 10.2 BUN (7-18) mg/dL 11 Creatinine (0.70-1.30) mg/dL 0.9 Estimated GFR/1.73 m2 (mL/min/1.73m2) >= 60.00 Glucose (74-106) mg/dL 96 Calcium (8.5-10.1) mg/dL 8.3 L Total Bilirubin (0.2-1.0) mg/dL 0.5 AST (15-37) U/L 22 ALT (16-63) U/L 26 Alkaline Phosphatase (46-116) U/L 98 Troponin I (<or=60) ng/L < 50 Total Protein (6.4-8.2) g/dL 7.2 Albumin (3.4-5.0) g/dL 3.6 Lipase (73-393) U/L 74 PAWSS Have you Been Recently Intoxicated or Drunk Within the Last 30 days?: Yes Have you Ever Experienced Previous Episodes of Alcohol Withdrawal?: No Have you ever Experienced Withdrawal Seizures?: No Have you ever Experienced Delirium Tremens(DT)s?: No Have you ever undergone Alcohol Rehabilitation Treatment (i.e, inpt ot outpatient treatment programs)?: No Have you ever Experienced Blackouts?: No Have you ever Combined Alcohol with other Downers within the last 90 days?: No Have you ever Combined Alcohol with any other Substance of Abuse during the last 90 days?: No Positive Blood Alcohol level on Presentation? [PCS.BAL]: Yes Evidence of Increased Autonomic Activity (i.e. HR>120, tremor, sweating, agitation, nausea)?: No Result: 2
--- NOTE | 2021-10-26 23:06 | DI.VRAD_ITS ---
PROCEDURE INFORMATION: Exam: XR Chest Exam date and time: 10/26/2021 10:13 PM Age: 76 years old Clinical indication: Prior surgery; Surgery date: 6+ months; Surgery type: Pacemaker; Patient HX: Epigastric pain, cardiac HX TECHNIQUE: Imaging protocol: XR of the chest. Views: 1 view. COMPARISON: CR XR CHEST 2V PA LATERAL 03/12/2018 12:00 PM FINDINGS: Tubes, catheters and devices: Monitoring wires noted. Pacemaker noted from the left. Lungs: Mild chronic linear opacity noted at the left lung base. Lungs are otherwise clear. No consolidation. No pulmonary vascular congestion. Pleural spaces: Unremarkable. No pleural effusion. No pneumothorax. Heart/Mediastinum: No cardiomegaly. Normal mediastinal contours. Diaphragm: Tenting and distortion of the left hemidiaphragm is unchanged from the previous study. Bones/joints: Sternotomy wires noted. IMPRESSION: No acute cardiopulmonary abnormality. Dictated and Authenticated by: Mack Hernandez MD. Ordering:CANDIDA Meyers MD
[2021-10-27] VITALS: PULSE 65
[2021-10-27 00:48] LABS: Troponin I < 50 ng/L (<or=60)
[2021-10-27 01:05] VITALS: BP 132/80; PULSE 65; RESP 18; O2SAT 95
== END 2021-10-27 01:06 | disposition home or self-care (01) ==
PROVIDERS: Emergency Provider Student in an Organized Health Care Education/Training Program
DX: R10.13 Epigastric pain (principal); R07.9 Chest pain, unspecified; Z86.79 Personal history of other diseases of the circulatory system
CPT/HCPCS: 36415; 80053; 83690; 93005; 99284; 71045; 84484; 85025; 93010; 99283

== ENCOUNTER → 2021-10-29 09:49 | Outpatient (BNVA) | payer MEDICARE, SELFPAY | PROVIDERS: Visit Provider Internal Medicine Cardiovascular Disease | DX: I25.10 Atherosclerotic heart disease of native coronary artery without angina pectoris (principal); I35.9 Nonrheumatic aortic valve disorder, unspecified; I10 Essential (primary) hypertension; Z95.0 Presence of cardiac pacemaker; R06.02 Shortness of breath | CPT/HCPCS: 99214; 99213 ==

== ENCOUNTER → 2021-11-09 00:09 | Outpatient (CLI) | payer MEDICARE, SELFPAY ==
--- NOTE | 2021-11-09 08:00 | DI.NM_ITS ---
APPROVED REPORT Exam: Pharmacologic Patient Location: Out-Patient Room/Bed: Stress Nurse: Nadine Fontana RN Ordering Provider:RONNIE PRIESTD, Contact Number: [phone] BMI: 25.82 Baseline Rhythm: Atrial sensed, ventricular paced Indications: Chest pain, CAD, atherosclerotic heart disease Medical History Medical History: Hypetension, hyperlipidemia, CVD, bicuspid aortic valve, spinal stenosis Cardiac Medications: Aspirin, atorvastatin, metoprolol succinate, amlodipine, lisinopril Allergies: Dextromethorphan, phenylephrine Cardiac Risk Factors: Hypertension, hyperlipidemia, CVD, family hx Previous Cardiac Procedures: CABG x1 and pacemaker (2014) Pretest Chest Pain Characteristics: None Exercise History: Indeterminate Physical Disabilities: None Lung Sounds: Clear to auscultation Heart Sounds: Regular Stress Test Details Test: Pharmacologic stress was paired with low level exercise. Reason for pharmacologic stress test: V- pacing. Nuclear Acquisition: Rest Tc-99m/Stress Tc-99m 1 day Rest Isotope: Tc-99m Sestamibi. Dose: 9.8 Date: 11/09/2021 Injection Time: 1120 Stress Isotope: Tc-99m Sestamibi. Dose: 31.0 Date: 11/09/2021 Injection Time: 13.18 HR Resting HR Supine: 77 bpm Max Heart Rate (APMHR): 145.264382 bpm Resting HR Standin bpm Target HR (85% APMHR): 123.202133 bpm Max HR Achieved: 125 bpm % of APMHR: 86.21 Recovery HR: 99 bpm Comment: Metoprolol succinate not held prior to testing. BP Resting BP Supine: 122/82 mmHg Resting BP Standin/78 mmHg Max BP: 138/82 mmHg Recovery BP: 122/72 mmHg ECG Resting ECG: Atrial sensed, ventricular paced Ectopy: None Stress ECG: Atrial sensed, ventricular paced ST Change: Nondiagnostic V-pacing Arrhythmia: None Recovery ECG: Atrial sensed, ventricular paced Recovery ST Change: Nondiagnostic V-pacing Recovery Arrhythmia: None Clinical Stress Symptoms: General Fatigue, Dyspnea Angina Score: None Rate Pressure Product: 69120 Stress ECG Conclusion 1. Resting electrocardiogram showed an atrial sensed ventricular paced rhythm 2. Patient underwent stress testing using pharmacologic stress with regadenoson 3. Peak heart rate achieved was 86% of predicted for age 4. The electrocardiographic portion of the test was nondiagnostic due to abnormal EKG with paced rhyt hm 5. See MPI report Stress Test Summary STAGE HR BP Symptoms NOTES Supine 77 122/82 SpO2 97% 1 min post Lexiscan injection 106 138/82 Mild SOB SpO2 93% 3 min post Lexiscan injection 120 98/62 Mild SOB, no hypotensive s/s SpO2 95% 6 min post Lexiscan injection 99 122/72 SOB resolved SpO2 100% Pharmacologic stress was paired with low level exercise due to V- pacing. Pt ambulated on treadmill a t 1.3 mph and 0% grade during Regadenoson administration. Tolerated testing well. MPI Conclusion Normal myocardial perfusion, no evidence of ischemia or prior infarction EF 53%, normal wall motion Radiologist Interpretation Radiologist agrees with Route Delivery Driver's Interpretation. Radiologist Interpretation by: Lorie Smith MD Interpretation Date/Time: 11/09/2021 16:38:07
[2021-11-09] MEDS: Regadenoson 0.4 MG/5 ML SYR IVP (13:45)
== END ==
PROVIDERS: Visit Provider Internal Medicine Cardiovascular Disease
DX: I25.10 Atherosclerotic heart disease of native coronary artery without angina pectoris (principal)
CPT/HCPCS: 78452; 93016; 93018; 93017; J2785

== ENCOUNTER → 2021-12-16 02:19 | Outpatient (CLI) | payer MEDICARE, SELFPAY ==
--- NOTE | 2021-12-16 10:37 | DI.US_ITS ---
APPROVED REPORT EXAM: Comprehensive 2D, Doppler, and color-flow Echocardiogram Patient Location: Out-Patient Other Information Study Quality: Adequate Conclusion Normal left ventricular wall thickness and chamber size. Estimated ejection fraction is 50 to 55%. There are no segmental wall motion abnormalities Normal right ventricular size and systolic function Both atria are normal in size Device lead noted in the right heart The aortic valve is sclerotic and probably trileaflet without stenosis or regurgitation Mildly thickened mitral leaflets, trace regurgitation Normal tricuspid valve with trace regurgitation. Estimated right ventricular systolic pressure is 20 mmHg Mildly dilated ascending aorta Wall motion Left Ventricle The left ventricle is normal size. Left ventricular systolic function is borderline There is normal l eft ventricular wall thickness. There are no segmental wall motion abnormalities There is no ventricu lar septal defect visualized. LVEF is 50-55%. Right Ventricle The right ventricle is normal size. The right ventricular systolic function is normal. The RVSP is 20 .1 mmHg. Pacemaker lead is present in the right ventricle. Atria The left atrium size is normal. The right atrium size is normal. The interatrial septum is intact wit h no evidence for an atrial septal defect. Aortic Valve The Aortic valve is sclerotic. Aortic valve is calcified. Aortic valve is probably trileaflet. There is no aortic valvular stenosis. No aortic regurgitation is present. Mitral Valve Mitral valve leaflets are mildly thickened. No evidence of mitral valve stenosis. Trace mitral regurg itation. Tricuspid Valve The tricuspid valve is normal in structure. There is no tricuspid valve stenosis. Trace tricuspid reg urgitation. Pulmonic Valve The pulmonary valve is normal in structure. There is no pulmonic valvular stenosis. There is no pulmo jason valvular regurgitation. Great Vessels The aortic root is normal in size. The ascending aorta is mildly dilated. Aortic arch is not well vis ualized. IVC is normal in size and collapses >50% with inspiration. Pericardium There is no pericardial effusion. 2D Dimensions IVSD d PLAX 0.97 cm M: 0.6-1.2 LV Vol A2C d MOD 110.9 mL LVPW d PLAX 0.97 cm M: 0.6 - 1.2 LV Vol A4C d MOD 64.4 mL LVID d PLAX 4.80 cm M: 4.2 - 5.8 LV EF A4C MOD 50.7 % LVDs 3.50 cm M: 2.5 - 4.0 LV EF A2C MOD 50.3 % Ao Root d 3.15 cm M: 3.1 - 3.7 LV EF Biplane MOD 49.8 % RA Area A4C 9.64 cm2 SV 42.59 mL RA Vol/ BSA A4C s A-L 10.9 mL/m2 SV Index 23.41 mL/m2 Ao Asc Diam d 3.57 cm M: 2.6 - 3.4 LV EF Teichholz 51.0 % LVEF (Mar's) 49.83 % M: 52 - 72 LV Volume 66.23 mL M: 62 - 150 LV Volume Index 36.39 mL/m2 M: 34 - 74 LV Vol Biplane MOD 85.5 mL FS 26.00 % M-Mode TAPSE 1.50 cm (M/F) >1.7 LV Diastology MV E' medial 0.059 (>0.07 m/s) E/A Ratio 0.9 LV E/e MED 8.60 (<14) MV E Vmax 0.51 (0.4-1.3 m/s) MV E' lateral 0.077 (>0.1 m/s) MV A Vmax 0.55 (0.4-1.3 m/s) LV E/e LAT 6.70 (<14) MV E/A Ratio 0.87 MV E/E' medial 8.63 MV E/E' lateral 6.70 Aortic Valve LVOT Area 3.04 cm2 AoV Area Vmax 1.42 cm2 LVOT Vmax 0.77 m/s AoV Area/ BSA (Vmax) 0.78 cm2/m2 LVOT Mean [place]. 0.51 m/s JONH Mean [place]. 1.28 cm2 LVOT Peak Grad 2.4 mmHg JONH Mean [place]. Index 0.70 cm2/m2 LVOT Mean Grad 1.2 mmHg LVOT VTI 0.154 m LVOT Diam s 1.95 cm AoV Vmax 1.65 m/s Velocity Ratio 0.46 AoV Mean [place]. 1.22 m/s AoV Peak Grad 10.9 mmHg LVOT SV 46.81 mL AoV Mean Grad 6.5 mmHg AoV VTI 0.296 m AoV Area VTI 1.58 cm2 AoV Area/ BSA (VTI) 0.87 cm/m2 Mitral Valve MV DT 272 (160-240 msec) MV PHT 79 msec MV Area PHT 2.79 cm2 MV VTI 0.206 m MV Area VTI 2.27 (4.0-6.0 cm2) Pulmonary Valve PV Vmax 0.52 (0.5-1.5 m/s) RVOT Peak Gr. 0.80 mmHg PV Peak Grad 1.1 mmHg RVOT Mean Gr. 0.40 mmHg PV Mean Grad 0.7 mmHg RVOT VTI 0.075 m PV VTI 0.104 m RVOT Vmax 0.45 m/s Tricuspid Valve TR Peak Grad 17.0 mmHg TR Vmax 2.07 m/s RA Pressure 3.00 mmHg RVSP (TR) 20.1 mmHg
== END ==
PROVIDERS: PCP Nurse Practitioner Family; Visit Provider Internal Medicine Cardiovascular Disease
DX: I25.10 Atherosclerotic heart disease of native coronary artery without angina pectoris (principal); I35.9 Nonrheumatic aortic valve disorder, unspecified; R06.02 Shortness of breath
CPT/HCPCS: 93306

== ENCOUNTER → 2022-03-09 09:51 | Outpatient (BNVA) | payer MEDICARE, SELFPAY | PROVIDERS: PCP Nurse Practitioner Family; Visit Provider Physician Assistant | DX: Z95.0 Presence of cardiac pacemaker (principal); R00.1 Bradycardia, unspecified | CPT/HCPCS: 93280 ==

== ENCOUNTER → 2022-09-07 09:50 | Outpatient (BNVA) | payer MEDICARE, SELFPAY | PROVIDERS: PCP Nurse Practitioner Family; Referring Provider Nurse Practitioner Family; Visit Provider Physician Assistant | DX: Z46.89 Encounter for fitting and adjustment of other specified devices (principal); Z95.0 Presence of cardiac pacemaker; I44.2 Atrioventricular block, complete | CPT/HCPCS: 93280; 99212 ==

== ENCOUNTER → 2022-11-04 09:07 | Outpatient (BNVA) | payer MEDICARE, SELFPAY | PROVIDERS: PCP Nurse Practitioner Family; Visit Provider Internal Medicine Cardiovascular Disease | DX: I35.9 Nonrheumatic aortic valve disorder, unspecified (principal); Z95.0 Presence of cardiac pacemaker; I25.10 Atherosclerotic heart disease of native coronary artery without angina pectoris | CPT/HCPCS: 99214 ==

== ENCOUNTER 2023-01-10 04:54 | Outpatient (CLI) | payer MEDICARE, SELFPAY ==
[2023-01-10 12:35] LABS: CREATININE 1.1 mg/dL (0.70-1.30); Calculated LDL 78 mg/dL (<100); Cholesterol 161 mg/dL (<200); Estimated GFR 69.57 (mL/min/1.73m2); HDL Cholesterol 57 mg/dL (40-60); Potassium 4.2 mmol/L (3.5-5.1); Triglyceride 132 mg/dL (<150)
== END 2023-01-10 04:55 | disposition home or self-care (01) ==
LOC: LOS 04:54
PROVIDERS: PCP Nurse Practitioner Family; Visit Provider Nurse Practitioner Family
DX: I10 Essential (primary) hypertension (principal); E78.5 Hyperlipidemia, unspecified
CPT/HCPCS: 36415; 80061; 82565; 84132

== ENCOUNTER 2023-03-17 14:06 | Emergency (ER) | payer MEDICARE, SELFPAY ==
[2023-03-17 14:14] VITALS: BP 110/54; PULSE 78; RESP 16; TEMP 36.4; O2SAT 98
--- NOTE | 2023-03-17 14:15 | RT.EKG_ITS ---
APPROVED REPORT Exam: Resting ECG Reason for Exam: GI bleed Patient Location: E HR:60 bpm ECG Measurements Heart Rate 60 AXIS AZ 173 P 50 QRSd 162 QRS -47 QT 473 T 64 QTc 473 Conclusion Atrial-ventricular dual-paced rhythm No change vs 10/26/21
--- NOTE | 2023-03-17 14:41 | W.ED.GENAD ---
Discharge Plan Disposition Patient Disposition: Home Condition: Stable Discharge Details Clinical Impression: Upper GI bleed Primary Care Provider: Lonnie Mohamud ED Provider: Mery Conte Home Meds and New Rx's Prescriptions: New pantoprazole [Protonix] 40 mg tablet,delayed release (DR/EC) 40 mg PO BID Qty: 60 0RF sucralfate [Carafate] 1 gram tablet 1 g PO Q6H Qty: 30 0RF Continued polyethylene glycol 3350 [Miralax] 17 gram/dose powder 17 g PO DAILY amlodipine 10 mg tablet 10 mg PO DAILY Qty: 90 3RF atorvastatin 40 mg tablet 60 mg PO DAILY Qty: 135 4RF lisinopril 40 mg tablet 40 mg PO DAILY Qty: 90 4RF metoprolol succinate 25 mg tablet extended release 24 hr 25 mg PO DAILY Qty: 90 3RF acetaminophen 500 MG tablet 2 tab PO Q6H PRN Discontinued aspirin [Aspirin Low-Strength] 81 MG tablet,chewable 1 tab PO DAILY Discharge Instructions Instructions: Gastrointestinal Bleeding (ED) Additional Instructions: Stop your aspirin. Start the Protonix and Carafate as prescribed. Surgery will call you on Monday morning for a follow-up appointment. Return to ED for dizziness, lightheadedness, chest pain, difficulty breathing, severe abdominal pain, pooping bright red blood per rectum, any other concerns. Medical Decision Making ` Both the patient and his were updated on his test results. I discussed the case with Dr. Dumont. We will send the patient home on twice daily Protonix with Carafate. He will stop his aspirin. Surgery will call him on Monday for follow-up appointment for Monday. He will return to the ED for dizziness, lightheadedness, chest pain, shortness of breath, abdominal pain, bright red blood per rectum, any other concerns. Medical Records Medical records reviewed: Yes I reviewed the patient's medical records. Lab Data Lab results reviewed: Yes I reviewed the patient's lab results. Lab results narrative: Patient's hemoglobin and hematocrit in the ED are 9.2 and 26.6. His last H&H on 11/10 were 11.9 and 33.3. Prior to this in November 2014 his H&H were normal. His BUN and creatinine today are normal at 16 and 1.0. His CHEM 20 is normal with the exception of a sodium of 129 and glucose of 112. His troponin is normal as is his INR. His PTT is 23. ECG Data Attestation: I personally reviewed and interpreted this ECG (s) as follows: (AV paced rhythm at 60, no interim change when compared to 10/26/2021) Prior ECG tracings: available for review HPI General Date/Time Provider Initiated Documentation: 03/17/23 14:21. HPI Narrative: This 77-year-old male patient with a history of CABG and complete heart block (has pacer) presents on referral from his PCP with a chief complaint of black stool. The patient states for the past 2 to 3 weeks he has had worsening dyspnea on exertion. He reports that over a week ago his stools started to get darker and for the past week he has been pooping black stool. He is on no anticoagulation except for aspirin. He does not take a BERT or PPI. The patient denies recent nosebleeds, hematuria, unusual rashes. He says he has a bicuspid aortic valve but has never had issues with this. He made appointment on Monday to see his PCP today. A [id number] hemoglobin was 8 in the office and he had 3 heme positive stool cards (black stool). Patient denies weakness or dizziness. He has no chest or abdominal pain. He has no nausea or vomiting. He states he states he has this off and on gas-like feeling in his chest sometimes after he eats. This typically resolves if he stops eating for a few minutes. This has been going on for many years. Patient states that his systolic blood pressure was 105 earlier today and this is pretty low for him. He is on 3 antihypertensive medications including amlodipine, lisinopril, and metoprolol. Related Data Home Medications Medication Instructions Recorded Confirmed acetaminophen 500 mg tablet 2 tab PO Q6H PRN 12/30/14 03/17/23 polyethylene glycol 3350 17 17 g PO DAILY 10/30/20 03/17/23 gram/dose oral powder (Miralax) amlodipine 10 mg tablet 10 mg PO DAILY #90 tabs 11/04/22 03/17/23 atorvastatin 40 mg tablet 60 mg (1.5 x 40 mg) PO DAILY #135 11/04/22 03/17/23 tabs lisinopril 40 mg tablet 40 mg PO DAILY #90 tab-caps 11/04/22 03/17/23 metoprolol succinate 25 mg 25 mg PO DAILY #90 tabs 11/04/22 03/17/23 tablet,extended release 24 hr pantoprazole 40 mg tablet,delayed 40 mg PO BID #60 tabs 03/17/23 release (Protonix) sucralfate 1 gram tablet (Carafate) 1 g PO Q6H #30 tabs 03/17/23 Previous Rx's Medication Instructions Recorded amlodipine 10 mg tablet 10 mg PO DAILY #90 tabs 11/04/22 atorvastatin 40 mg tablet 60 mg (1.5 x 40 mg) PO DAILY #135 11/04/22 tabs lisinopril 40 mg tablet 40 mg PO DAILY #90 tab-caps 11/04/22 metoprolol succinate 25 mg 25 mg PO DAILY #90 tabs 11/04/22 tablet,extended release 24 hr pantoprazole 40 mg tablet,delayed 40 mg PO BID #60 tabs 03/17/23 release (Protonix) sucralfate 1 gram tablet (Carafate) 1 g PO Q6H #30 tabs 03/17/23 Allergies Allergy/AdvReac Type Severity Reaction Status Date / Time dextromethorphan Allergy Intermediate Hives and Verified 03/17/23 12:59 facial swelling phenylephrine Allergy Intermediate Hives and Verified 03/17/23 12:59 facial swelling General Stated Complaint: GI Bleed LEVON: 3 Review of Systems Constitutional Constitutional: Denies chills, Denies fever(s), Denies headache(s) and Denies weakness Eyes Eyes: Denies diplopia and Reports other (no redness) ENT Ears, Nose, Mouth, and Throat: Denies otalgia, Denies headache(s), Denies nasal congestion, Denies nasal discharge, Denies neck pain and Denies sore throat Cardiovascular Cardiovascular: Denies chest pain, Denies palpitations and Denies dyspnea Respiratory Respiratory: Denies cough and Denies dyspnea Comments: Has dyspnea on exertion that has been worse over the past 2 to 3 weeks Gastrointestinal Gastrointestinal: Denies abdominal pain, Denies diarrhea, Denies nausea and Denies vomiting Comments: Has had black stools for the past week Genitourinary Genitourinary: Denies difficulty urinating and Denies dysuria Musculoskeletal Musculoskeletal: Denies myalgias, Denies muscle weakness, Denies neck pain, Denies numbness and Reports other (edema) Integumentary/Breasts Skin/Breast: Denies change in pigmentation and Denies rash Neurologic Neurologic: Denies headache(s), Denies numbness and Denies weakness Endocrine Endocrine: Denies palpitations PFSH All Active Problems (Updated 03/17/23 @ 17:51 by Mery Conte MD) Upper GI bleed (Acute) Black stool (Acute) Heart block AV complete (Acute) Pacemaker (Acute) [employer] [place]25[place] [facility] [place] SERIAL #[id number] rh Aortic valve disorder (Acute) Spinal stenosis (Acute 10/21/13) Surgery 08/2013 Hyperlipidemia (Acute) Essential hypertension (Acute 02/27/13) Coronary artery disease involving [place] coronary artery of [place] heart without angina pectoris (Acute 04/07/15) Bradycardia (Acute 10/21/13) [place]/ [place] Type 1! Actinic keratosis (Acute) Surgical History Tonsillectomy and adenoidectomy Circumcision Family History Mother , 79 Liver cancer Father , 78 Heart disease Stroke Brother , 82 Parkinsons disease Social History Smoking/Tobacco Use Status: Former Tobacco Use tobacco type: cigarettes Tobacco: How many years used: 25 Second Hand Exposure: Yes Smoking risk assessment performed?: Yes Alcohol Intake: current Alcohol Intake frequency: a few times a week Alcohol type: beer Drug use: Never Substance use type: does not use Caregiver/Support person: No Household members: significant other Housing: house Do you need help understanding health information?: Never Pets and animals: No Sexually active: Yes Do you think of yourself as: straight/heterosexual Current gender identity: male What is your relationship status?: living with partner How often do you talk on the phone with friends or family?: decline to answer How often do you get together with friends or relatives?: three or more times per week How often do you attend zoroastrianism or mandaeism services?: decline to answer Do you belong to any clubs or organized social groups?: decline to answer Panel score (0-1 are the most socially isolated patients): 2 What type of physical activity do you participate in: walking Frequency: daily Mariama/Mandaen: [employer] Special mariama needs: No Seatbelt use: always Drive intox or ride w/intox catering driver: No Do you feel safe at home: Yes Do you feel safe in your relationship?: Yes Exam Const General: no acute distress, well developed, well groomed and not in acute distress Nutritional Appearance: well nourished Orientation: alert and oriented x3 HENID Head: normocephalic and atraumatic Ears: external ears normal Mouth: oropharynx normal and moist mucous membranes Throat: posterior oropharynx normal Eyes Conjunctivae: conjunctivae normal Neck Neck: full ROM and supple Chest Chest: normal inspection of the chest Resp Effort & Inspection: normal respiratory effort Auscultation: clear to auscultation bilaterally Cardio Rate: regular rate Rhythm: regular rhythm Heart Sounds: no murmurs and no rubs GI Inspection: normal to inspection Palpation: soft, nontender and other (non distended) Auscultation: normal bowel sounds Skin General skin exam: no rashes or lesions noted and other (pink, warm, dry) Neuro General: patient alert, patient awake and patient oriented x3 Speech: speech normal Motor: other (STUBBS) Sensory Exam: no sensory deficits noted Extrem General: normal to inspection, full ROM and pedal edema present Psych Mental Status: mental status grossly normal Speech and Movement: speech and movement normal Affect: normal affect Course Vital Signs Vital signs: Vital Signs Temperature 36.4 C L 03/17/23 14:14 Pulse 78 03/17/23 14:14 Respiratory Rate 16 03/17/23 14:14 Blood Pressure 110/54 L 03/17/23 14:14 Pulse Oximetry 98 03/17/23 14:14 Temperature 36.4 C L 03/17/23 14:14 Pulse 78 03/17/23 14:14 Respiratory Rate 16 03/17/23 14:14 Blood Pressure 110/54 L 03/17/23 14:14 Pulse Oximetry 98 03/17/23 14:14 Oxygen Delivery Method Room Air 03/17/23 14:14 Oxygen Flow Rate 0 03/17/23 14:14 Pain Level 0 03/17/23 14:14
[2023-03-17 14:50] VITALS: BP 136/71; BP 142/60; BP 144/56; PULSE 72; PULSE 74; PULSE 75
[2023-03-17 15:21] LABS: Abs Immature Grans 0.05 10^3/uL (0.0-0.06); Absolute Basophil Count 0.02 10^3/uL (0.0-0.2); Absolute Eosinophil Count 0.02 10^3/uL (0.0-0.7); Absolute Lymphocyte Count 2.32 10^3/uL (1.2-3.4); Absolute Neutrophil Count 3.39 10^3/uL (1.2-6.7); Basophils % 0.3; Eosinophils % 0.3; HCT 26.6 % (40.0-50.0); HGB 9.2 g/dL (13.5-17.5); Immature Grans % 0.8; Lymphocytes % 36.3; MCH 32.9 pg (27.0-33.0); MCHC 34.6 % (32.0-36.0); MCV 95 fL (80-95); MPV 10.8 fL (8.0-11.0); Monocytes % 9.4; Neutrophils % 52.9; Platelet Count 200 10^3/uL (130-400); RDW 12.5 % (11.8-14.1); RDW-SD 43.3 fL
[2023-03-17] MEDS: PANTOPRAZOLE 80 MG in Normal Saline 100 ML 10 MG IV (15:37)
[2023-03-17 15:38] LABS: ALT 28 U/L (16-63); AST 32 U/L (15-37); Albumin 4.2 g/dL (3.4-5.0); Alkaline Phosphatase 67 U/L (46-116); Anion Gap 8.2 mmol/L (3-11); BUN 16 mg/dL (7-18); Bilirubin, Total 0.6 mg/dL (0.2-1.0); CO2 22.8 mmol/L (21.0-32.0); Chloride 98 mmol/L (98-107); Glucose 112 mg/dL (74-106); Magnesium 2.1 mg/dL (1.8-2.4); Potassium 4.2 mmol/L (3.5-5.1); Sodium 129 mmol/L (136-145); Total Protein 7.2 g/dL (6.4-8.2); Troponin I < 50 ng/L (<or=60)
[2023-03-17 15:56] LABS: INR 1.1 (0.9-1.1); PTT Activated 22.8 sec (23.6-32.8); Prothrombin Time 10.9 sec (9.1-11.1)
[2023-03-17] MEDS: Normal Saline 500 ML IV (16:03)
[2023-03-17] MEDS: Normal Saline 1,000 ML 100 ML IV (16:03)
[2023-03-17 16:18] VITALS: BP 170/63; PULSE 65; RESP 22; O2SAT 98
[2023-03-17] MEDS: Pantoprazole 40 MG VIAL 80 MG IVP (18:00)
[2023-03-17 18:06] VITALS: BP 152/80; PULSE 76; RESP 20; TEMP 37; O2SAT 99
--- NOTE | 2023-03-17 19:31 | NUR.NOTE ---
Pt placed on care management list for referral to Surgery for GI bleed to be seen and scheduled for Monday.
== END 2023-03-17 18:06 | disposition home or self-care (01) ==
PROVIDERS: Emergency Provider Emergency Medicine; PCP Nurse Practitioner Family
DX: K92.2 Gastrointestinal hemorrhage, unspecified (principal); I10 Essential (primary) hypertension; I25.10 Atherosclerotic heart disease of native coronary artery without angina pectoris; Q23.1 Congenital insufficiency of aortic valve; Z95.1 Presence of aortocoronary bypass graft; Z87.891 Personal history of nicotine dependence
CPT/HCPCS: 80053; 86850; 86900; 86901; 93005; 96361; 96365; 96366; 96375; 99284; 83735; 84484; 85025; 85610; 85730; 93010; 99283

== ENCOUNTER → 2023-03-27 10:51 | Outpatient (BNVA) | payer MEDICARE, SELFPAY | PROVIDERS: PCP Nurse Practitioner Family; Referring Provider Nurse Practitioner Family; Visit Provider Surgery | DX: K92.2 Gastrointestinal hemorrhage, unspecified (principal); I44.2 Atrioventricular block, complete; I35.9 Nonrheumatic aortic valve disorder, unspecified; I25.10 Atherosclerotic heart disease of native coronary artery without angina pectoris | CPT/HCPCS: 99214 ==

== ENCOUNTER 2023-04-19 07:43 | Day surgery (SDC) | payer MEDICARE, SELFPAY ==
--- NOTE | 2023-04-19 06:50 | ANES.PREOP_ITS ---
General Info Date of Service Date Performed: 04/19/23 Height: 5 ft 6 in Weight: 75.75 kg Body Mass Index (BMI): 26.9 Surgical Procedure: Operation Date: 04/19/23 09:05 Proposed Procedure Side Surgeon p Gastroscopy Luna Duffy MD Meds Allergies and Home Medications Allergies Allergy/AdvReac Type Severity Reaction Status Date / Time dextromethorphan Allergy Intermediate Hives and Verified 04/19/23 07:50 facial swelling phenylephrine Allergy Intermediate Hives and Verified 04/19/23 07:50 facial swelling Home Medication Medication Instructions Recorded acetaminophen 500 mg tablet 2 tab PO Q6H PRN 12/30/14 polyethylene glycol 3350 17 17 g PO DAILY 10/30/20 gram/dose oral powder (Miralax) amlodipine 10 mg tablet 10 mg PO DAILY #90 tabs 11/04/22 atorvastatin 40 mg tablet 60 mg (1.5 x 40 mg) PO DAILY #135 11/04/22 tabs lisinopril 40 mg tablet 40 mg PO DAILY #90 tab-caps 11/04/22 metoprolol succinate 25 mg 25 mg PO DAILY #90 tabs 11/04/22 tablet,extended release 24 hr Current Visit Medications: Current Medications Generic Name Dose Route Start Last Admin Trade Name Freq PRN Reason Stop Dose Admin Ringer's Solution 1,000 mls @ 80 mls/hr 04/19/23 06:00 IV 04/19/23 23:59 INFUSION DAT IV Miscellaneous Supplies 1 each 04/19/23 06:00 Iv Access IV 04/19/23 23:59 DIRECTED DAT Sodium Chloride 0 ml 04/19/23 06:00 Normal Saline Flush 10 Ml Syr IV 04/19/23 23:59 PRN PRN Sodium Chloride 0 ml 04/19/23 06:00 Normal Saline 10 Ml Vial IJ 04/19/23 23:59 DIRECTED PRN Sterile Water 0 ml 04/19/23 06:00 Water,Injection,Sterile 10 Ml Vial IJ 04/19/23 23:59 DIRECTED PRN PFSH Active Problems Active Problems: Problem Status Onset Code Upper GI bleed K92.2 Black stool K92.1 Heart block AV complete I44.2 Pacemaker Z95.0 Aortic valve disorder I35.9 Spinal stenosis 10/21/13 M48.00 Hyperlipidemia E78.5 Essential hypertension 02/27/13 I10 Coronary artery disease involving [place] coronary artery of [place] heart without angina pectoris 04/07/15 I25.10 Bradycardia 10/21/13 R00.1 Actinic keratosis L57.0 Medical History Medical History (Updated 04/19/23 @ 07:56 by Keily Hernandez RN) Cataract Cataract Surgical History Surgical History (Updated 04/19/23 @ 08:13 by Keily Hernandez RN) Hx of CABG Tonsillectomy and adenoidectomy Circumcision Tobacco Smoking/Tobacco Use Status: Former Tobacco Use Passive smoking exposure: Yes Second hand exposure: Yes Alcohol Alcohol Intake: current Alcohol intake frequency: a few times a week Alcohol type: beer Substance Use Substance use: Never Substance use type: does not use Vital Signs and Lab Results Vital Signs Most Recent Vital Signs in EMR: Temp Pulse Resp BP Pulse Ox 36.3 C L 67 16 133/77 97 04/19/23 07:53 04/19/23 07:53 04/19/23 07:53 04/19/23 07:53 04/19/23 07:53 Lab Results Blood Type / Crossmatch: No Data to Display Complete Blood Count: No Data to Display Complete Metabolic Panel: No Data to Display Liver Function Panel: No Data to Display Coagulation Panel: No Data to Display Cardiac Panel: No Data to Display Arterial Blood Gas: No Data to Display Venous Blood Gas: No Data to Display Pancreas Panel: No Data to Display Thyroid Panel: No Data to Display Infectious Disease: No Data to Display Blood Cultures: No Data to Display Toxicology Panel: No Data to Display Imaging and Studies Imaging and Studies Study information below may be from another EMR and interpreted by another provider. Please see original notes in EMR for more complete details. EKG Summary: 03/13: AV paced. Stress Test Summary: 11/10: AV paced, pharm test, HR 86%. normal perfusion, no evidence of ischemia or infarction. EF 53% Echocardiogram Summary: 12/10: LVEF 50-55%, sclerotic AV w/o stenosis/regurg, trace MR/TR. RVSP 20 mmhg. Anesthesia Assessment and Plan Anesthesia History Personal History: No History of Anesthesia Complications Family History: No Family History of Anesthesia Complications Exercise Tolerance Exercise Tolerance: Metabolic Equivalents>4 Cardiac & Pulmonary Exam Cardiac Exam: Normal S1/S2 Heart Sounds Pulmonary Exam: Clear Bilateral Breath Sounds Implantable Cardiac Device Does patient have a Pacemaker or an ICD?: Yes Device Marketing Technologist:: [employer] A2DR0 Reason for Placement:: CHB Date of Last Device Interrogation:: 03/05/23 Airway Exam Known Difficult Airway: No Mallampati Class: 3 Mouth Opening: Normal (> 3cm) Thyromental Distance: Less than 3 cm Neck Range of Motion: Limited ROM Neck Circumference: Normal Teeth Condition: Normal Dentition ASA Classification ASA Score: ASA 3 Emergency Case?: No NPO Status NPO Status: NPO Clears >2 hours, Solids >8 hours Anesthesia Plan Resuscitation Status: Full Code Anesthesia Technique: General Anesthesia Airway Planned: Natural Airway Monitors Used: Standard Monitors Preoperative Comments:: 77 yo male for EGD. 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 - CABG, mac 4 grade 1, easy mask.
[2023-04-19 06:54] VITALS: BMI 26.9
--- NOTE | 2023-04-19 07:14 | W.PM.ENDDOP ---
Date of service: 04/19/23 Time of Service: 09:51 Endoscopy Report DATE OF PROCEDURE: 04/19/23 PRE-OP DIAGNOSIS: Hx of melena POST-OP DIAGNOSIS: other (gastritis, GERD, esophageal stricture) PROCEDURE: EGD with biopsies SURGEON: Luna Duffy ANESTHESIA TYPE: General:No Airway ESTIMATED BLOOD LOSS: 3 PATHOLOGY: other (Bx of stomach and esophagus) COMPLICATIONS: None DISPOSITION: same day INDICATIONS: Mr. Welch is an 77-year-old gentleman who comes in today to discuss an upper endoscopy. We reviewed the procedure in detail as well as the reason for doing it. We reviewed the fact that he had melena and dropped his hemoglobin by 2 points. No he has not noted any more black stools I do feel it is in his best interest to take a peek and see what is going on in his stomach. At this time he is off of his aspirin. He does not have quite an extensive cardiac history. I reviewed the possible complications with him. After our conversation I do feel he and his had a good understanding of both the procedure as well as the possible complications. He wished to proceed. Risks, benefits and complications have been reviewed. Complications include but are not limited to bleeding, pain, perforation, sore throat, aspiration, and adverse reaction to the medications. Questions were entertained and answered to their satisfaction and they wished to proceed. No guarantees were given or implied. FINDINGS: mild gastritis Severe esophagitis with thick scar tissue that has the distal esophagus twisted PROCEDURE DESCRIPTION: After informed consent was obtained the patient was take to the procedure room and placed in a supine position. Monitors were applied and a time out was done. The patients name, date of , procedure type, allergies to medications and metal in their body was reviewed. A bite block was placed and the patient was sedated. Once sedated and comfortable the gastroscope was advanced through the oropharynx which was grossly normal into the esophagus. The proximal and mid-esophagus were normal. In the distal esophagus there was scarring that twisted the distal esophagus. There was some moderate inflammation. The scope was advanced into the stomach and through the pylorus into the 3rd portion of the duodenum. The duodenum was noted to be normal. The scope was retracted back into the stomach and biopsies were done to rule out H. pylori. There were no ulcers. The scope was retroflexed. The cardia and fundus were noted to be normal. There eas no hiatal hernia noted. The scope was retracted back into the esophagus and biopsies were done of the GE junction to rule out Meza's and to break up the thick scar tissue. The Z line was regular. The GE junction was at 36 cm. The scope was removed and the patient was woken up and taken back to [facility] in stable condition.
--- NOTE | 2023-04-19 07:15 | W.PM.DSUDISC ---
Date of service: 04/19/23 Time of Service: 09:43 Discharge Plan Disposition Patient Disposition: Home Condition: Stable Discharge Details Reason For Visit: joe Attending Provider: Luna Duffy Primary Care Provider: Lonnie Mohamud Home Meds and New Rx's Prescriptions: Continued polyethylene glycol 3350 [Miralax] 17 gram/dose powder 17 g PO DAILY amlodipine 10 mg tablet 10 mg PO DAILY Qty: 90 3RF atorvastatin 40 mg tablet 60 mg PO DAILY Qty: 135 4RF lisinopril 40 mg tablet 40 mg PO DAILY Qty: 90 4RF metoprolol succinate 25 mg tablet extended release 24 hr 25 mg PO DAILY Qty: 90 3RF acetaminophen 500 MG tablet 2 tab PO Q6H PRN Discharge Instructions Instructions: Esophagitis (DC) Additional Instructions: Findings: Inflammation of the esophagus with scarring Medication: Continue with Protonix Follow up: as needed if you have worsening swallowing issues Diet: Eat small meals often Chew your food very well Small sips of water between bites Please call if you develop: fevers >101.5 Nausea or Vomiting Abdominal pain that is not transient Rectal bleeding that is more then a tbsp A hard abdomen and inability to pass gas DAY SURGERY UNIT POST ENDOSCOPY INSTRUCTIONS Instructions for everyone who is given Anesthesia: For your safety, please do the following for the next 24 Hours: a. Do not drive or operate dangerous equipment b. Do not drink alcohol beverages or use any recreational drugs for the first 24 hours or while taking pain medications. The medications in your body may have a reaction that can be dangerous. c. Do not make any important decisions or sign any important papers 1. Generally there are no restrictions on your activity after a day or so has gone by, but you may feel a bit fatigued for a few days. 2. After you arrive home you may have a light meal and return to a normal diet as you can tolerate it without feeling sick to your stomach. 3. After surgery, you may feel pain or discomfort. This should be only transient, but if it persists please contact your doctor. 4. If there are any questions regarding the findings of your procedure, please feel free to contact your doctor. 6. If you are unable to contact your doctor with a problem, contact the hospital at [phone]. 7. Continue all your regular medications unless directed otherwise. I understand the above instructions and have no questions. Signature of Patient or Responsible Adult Escort Date/Time Name of Responsible Adult Escort Signature of Nurse Date/Time Activity:: Activity as Tolerated Diet:: As Tolerated Discharge Orders Discharge Orders: Discharge Order (Routine); Ordered 04/19/23 Ordered By: Luna Duffy DS: Diagnosis Discharge Diagnosis (1) Esophagitis determined by endoscopy: Status: Acute Asessment and Plan: Patient is seen and examined after their endoscopy. Patient has minimal sore throat. He has been able to tolerate liquids. He is not have any Nausea or Vomiting. he is not having any chest pain or shortness of breath. He has been able to pass gas and are not having any abdominal pain or distention. he is not having vomited any blood. The vital signs have been stable-see nursing notes. We discussed findings on their endoscopy We reviewed the importance of lifestyle modifications- see diet recommendations We reviewed any new medications that the patient may be prescribed- see medicine reconciliation. Patient will either be sent a letter with the biopsy results or follow up in the office- see discharge instructions Patient was given explicit instructions for emergency follow up post endoscopy- see discharge instructions Patient verbalized understanding and was discharged in stable and satisfactory condition. See nursing notes. (2) Chronic scarring of esophagus: Status: Acute
[2023-04-19 07:53] VITALS: BP 133/77; PULSE 67; RESP 16; TEMP 36.3; O2SAT 97
[2023-04-19] MEDS: Lactated Ringers 1,000 ML 80 ML IV (08:17)
--- NOTE | 2023-04-19 09:08 | STOM_PTH ---
PATIENT: Mayur Mendoza LOC: [facility] U#:[id number] AGE/SX: 77/M ROOM: RE04/19/[address]: Luna Duffy MD : 1945 BED: DIS: 04/19/2023 SPEC #: [id number] RECD: 04/19/23 12:45 STATUS: KAYA REQ #: [id number] DIANNE: 04/19/23 09:[address]: Luna Duffy DEPT: Surgical Specimen RECD BY: Denise Silva ENTERED: 04/19/23 12:47 SP TYPE: STOMACH OTHR DR: Lonnie Mohamud, ASHLEY Tissues: 1 - STOMACH BIOPSY 2 - ESOPHAGUS BIOPSY Procedures: GROSS AND MICRO LEVEL 4 IMMUNOPEROXIDASE STAIN Comments: [id number]
[2023-04-19 09:30] VITALS: BP 136/83; PULSE 84; RESP 18; TEMP 36.3; O2SAT 97
--- NOTE | 2023-04-19 09:44 | W.ANESPOSTOP ---
Postoperative Evaluation Date, Time and Location Date Performed: 04/19/23 Time Performed: 09:44 Patient Location: Day Surgery Unit Vital Signs Most Recent Imported Vital Signs: Most Recent Vital Signs Temp Pulse Resp BP Pulse Ox 36.3 C L 84 18 136/83 97 04/19/23 09:30 04/19/23 09:30 04/19/23 09:30 04/19/23 09:30 04/19/23 09:30 Pain Score Most Recent Pain Score: Most Recent Pain Score Pain Level 0 04/19/23 07:53 Assessment Mental Status: Awake (Alert & Oriented to Patient Baseline) Airway and Respiratory Function: Patent airway with normal (patient baseline) respiratory exam Cardiovascular Function: Hemodynamically Stable Hydration Status: Adequately Hydrated Nausea & Vomiting: No Nausea or Vomiting Pain: Pt. Denies Any Pain Peripheral Nerve Block: Patient did not receive a nerve block
[2023-04-19 10:15] VITALS: BP 156/70; PULSE 60; RESP 18; TEMP 36.3; O2SAT 99
== END 2023-04-19 10:11 | disposition home or self-care (01) ==
PROVIDERS: PCP Nurse Practitioner Family; Visit Provider Surgery
PROC: 0DJ68ZZ Inspection of Stomach, Via Natural or Artificial Opening Endoscopic (ICD-10-PCS; CPT 43235; principal; 2023-04-19 09:00)
DX: K20.90 Esophagitis, unspecified without bleeding (principal); K22.2 Esophageal obstruction; K92.1 Melena; Z87.891 Personal history of nicotine dependence
CPT/HCPCS: 43239; 88305; 88361; J2704

== ENCOUNTER → 2023-05-01 10:42 | Outpatient (BNVA) | payer MEDICARE, SELFPAY | PROVIDERS: PCP Nurse Practitioner Family; Referring Provider Nurse Practitioner Family; Visit Provider Surgery | DX: Z48.815 Encounter for surgical aftercare following surgery on the digestive system (principal); K22.70 Barrett's esophagus without dysplasia | CPT/HCPCS: 99213 ==

== ENCOUNTER → 2023-09-06 09:51 | Outpatient (BNVA) | payer MEDICARE, SELFPAY | PROVIDERS: PCP Nurse Practitioner Family; Visit Provider Physician Assistant | DX: R00.1 Bradycardia, unspecified (principal); Z95.0 Presence of cardiac pacemaker; I44.2 Atrioventricular block, complete | CPT/HCPCS: 93280 ==

== ENCOUNTER 2023-11-10 07:52 | Outpatient (CLI) | payer MEDICARE, SELFPAY ==
--- NOTE | 2023-11-10 07:45 | RT.EKG_ITS ---
APPROVED REPORT Exam: Resting ECG Reason for Exam: cardiac evaluation Patient Location: O HR:75 bpm ECG Measurements Heart Rate 75 AXIS VT 211 P 72 QRSd 159 QRS -61 QT 402 T 69 QTc 449 Conclusion Atrial-sensed ventricular-paced rhythm...ventricular pacing tracks p-waves No further analysis attempted due to paced rhythm
== END 2023-11-10 07:53 | disposition home or self-care (01) ==
LOC: DI.CARD 07:53
PROVIDERS: PCP Nurse Practitioner Family; Visit Provider Internal Medicine Cardiovascular Disease
DX: I25.10 Atherosclerotic heart disease of native coronary artery without angina pectoris; Z95.0 Presence of cardiac pacemaker
CPT/HCPCS: 93010

== ENCOUNTER → 2023-11-10 09:07 | Outpatient (BNVA) | payer MEDICARE, SELFPAY | PROVIDERS: PCP Nurse Practitioner Family; Visit Provider Internal Medicine Cardiovascular Disease | DX: Z95.0 Presence of cardiac pacemaker (principal); I35.9 Nonrheumatic aortic valve disorder, unspecified; I25.10 Atherosclerotic heart disease of native coronary artery without angina pectoris | CPT/HCPCS: 93005; 99213 ==

== ENCOUNTER → 2023-12-06 02:04 | Outpatient (CLI) | payer MEDICARE, SELFPAY ==
--- NOTE | 2023-12-06 12:30 | DI.US_ITS ---
APPROVED REPORT EXAM: Comprehensive 2D, Doppler, and color-flow Echocardiogram Patient Location: Out-Patient Services Coordinator: Caterina Albarran RDCS ([facility]) Indications: History of bicuspid aortic valve Other Information Study Quality: Adequate Conclusion Normal left ventricular wall thickness and chamber size. Ejection fraction is 55%. Wall motion is n ormal Normal right ventricular size and function Both atria are normal in size Aortic valve is sclerotic and bicuspid. There is no hemodynamically significant aortic stenosis. 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 The latter measures 3.71 cm Wall motion Left Ventricle The left ventricle is normal size. The overall left ventricular systolic function appears normal. The re is normal left ventricular wall thickness. There is normal LV segmental wall motion. There is no v entricular septal defect visualized. LVEF is 55%. Right Ventricle The right ventricle is normal size. The right ventricular systolic function is normal. Pacemaker lead is present in the right ventricle. Atria The left atrium size is normal. The right atrium size is normal. The interatrial septum is intact wit h no evidence for an atrial septal defect. Aortic Valve The Aortic valve is sclerotic. Aortic valve is bicuspid. There is no aortic valvular stenosis. No aor tic regurgitation is present. Mitral Valve The mitral valve is normal in structure. No evidence of mitral valve stenosis. Trace mitral regurgita tion. Tricuspid Valve The tricuspid valve is normal in structure. There is no tricuspid valve stenosis. Mild tricuspid reg urgitation. The RVSP is 23.8mmHg. Pulmonic Valve The pulmonary valve is normal in structure. There is no pulmonic valvular stenosis. There is no pulmo jason valvular regurgitation. Great Vessels Aortic root is mildly dilated. The ascending aorta is mildly dilated. Aortic arch is not well visu alized. IVC is normal in size and collapses >50% with inspiration. Pericardium There is no pericardial effusion. 2D Dimensions IVSD d PLAX 1.13 cm M: 0.6-1.2 Ao Root d 3.80 cm M: 3.1 - 3.7 LVPW d PLAX 1.10 cm M: 0.6 - 1.2 Ao Asc Diam d 3.71 cm M: 2.6 - 3.4 LVID d PLAX 4.47 cm M: 4.2 - 5.8 LVDs 3.33 cm M: 2.5 - 4.0 LV EF Teichholz 50.4 % FS 25.48 % LV EDV (Teich) 90.8 mL LV ESV (Teich) 45.0 mL M-Mode TAPSE 1.61 cm (M/F) >1.7 Auto EF LV EDV A4C 116.4 mL LV EDV A2C 119.3 mL LV EDV BP 117.2 mL LV ESV A4C 52.9 mL LV ESV A2C 52.3 mL LV ESV BP 52.6 mL LVEF(%) A4C 54.6 % LVEF(%) A2C 56.2 % LVEF(%) BP 55.1 % LV SV A4C 63.5 ml LV SV A2C 67.1 ml LV SV BP 64.6 ml LV CO A4C 4.1 L/min LV CO A2C 4.3 L/min LV CO BP 4.2 L/min HR A4C 64.52 BPM HR A2C 64.15 BPM LV EDV Index (BP) LA Volume LA Length A4C 4.7 cm LA Length A2C 4.5 cm LA Area A4C s 14.95 cm2 LA Area A2C s 14.77 cm2 LA Vol A4C A-L 40.34 mL LA Vol A2C A-L 41.00 mL LA Vol Biplane A-L 41.5 mL LA Vol/BSA A4C A-L LA Vol/BSA A2C A-L LA Vol/BSA BP A-L 22.2 mL/m2 LA Vol A4C MOD 35.3 mL LA Vol A2C MOD 39.4 mL LA Vol BP MOD 37.8 mL RA Volume RA Area A4C 14.4 cm2 RA ESV A4C (A-L) 38.2mL RA Vol/BSA A4C A-L RA Length A4C 4.6 cm RA ESV A4C (MOD) 33.8mL LV Diastology MV E' medial 0.053 (>0.07 m/s) MV E Vmax 0.65 (0.4-1.3 m/s) MV E/E' MED 12.34 (<14) MV A Vmax 0.70 (0.4-1.3 m/s) MV E' lateral 0.065 (>0.1 m/s) E/A Ratio 0.9 MV E/E' LAT 10.09 (<14) MV E' Average 0.059 m/s MV E/E'(average) 11.10 Aortic Valve AoV Vmax 1.66 m/s LVOT Vmax 0.76 m/s AoV Peak Grad 11.1 mmHg LVOT Peak Grad 2.3 mmHg AoV Area (Vmax) 1.47 cm2 LVOT VTI 0.162 m AoV VTI 0.375 m LVOT Mean Grad 1.3 mmHg AoV Mean Juventino. 1.23 m/s LVOT SV 52.37 mL AoV Mean Grad 6.9 mmHg LVOT Diam s 2.00 cm AoV Area (VTI) 1.40 cm2 Velocity Ratio 0.46 Mitral Valve MV DT 256 (160-240 msec) MV Vmax TIPS 0.72 m/s MV Mean Grad 1.0 (<2mmHg) MV VTI 0.234 m Pulmonary Valve PV Vmax 0.58 (0.5-1.5 m/s) RVOT Vmax 0.46 m/s PV Peak Grad 1.4 mmHg RVOT Peak Gr. 0.8 mmHg PV Mean Juventino 0.46 m/s RVOT VTI 0.091 m PV Mean Grad 0.9 mmHg RVOT Mean Gr. 0.5 mmHg Tricuspid Valve RA Pressure 3.00 mmHg TR Vmax 2.28 m/s TV S' 0.10 m/s TR Peak Grad 20.8 mmHg RVSP (TR) 23.8 mmHg
== END ==
PROVIDERS: PCP Nurse Practitioner Family; Visit Provider Internal Medicine Cardiovascular Disease
DX: I35.9 Nonrheumatic aortic valve disorder, unspecified (principal)
CPT/HCPCS: 93306

== ENCOUNTER → 2024-05-08 12:44 | Outpatient (BNVA) | payer MEDICARE, SELFPAY | PROVIDERS: PCP Nurse Practitioner Family; Visit Provider Student in an Organized Health Care Education/Training Program | DX: Z95.810 Presence of automatic (implantable) cardiac defibrillator (principal); R00.1 Bradycardia, unspecified | CPT/HCPCS: 93282 ==

== ENCOUNTER → 2024-11-06 14:52 | Outpatient (BNVA) | payer MEDICARE, SELFPAY | PROVIDERS: PCP Nurse Practitioner Family; Referring Provider Nurse Practitioner Family; Visit Provider Student in an Organized Health Care Education/Training Program | DX: I25.10 Atherosclerotic heart disease of native coronary artery without angina pectoris (principal); Z45.018 Encounter for adjustment and management of other part of cardiac pacemaker; R00.1 Bradycardia, unspecified; I10 Essential (primary) hypertension; I35.9 Nonrheumatic aortic valve disorder, unspecified; Z79.01 Long term (current) use of anticoagulants; Z79.811 Long term (current) use of aromatase inhibitors | CPT/HCPCS: 99214; 93280 ==

== ENCOUNTER → 2024-11-08 09:49 | Outpatient (BNVA) | payer MEDICARE, SELFPAY | PROVIDERS: PCP Nurse Practitioner Family; Visit Provider Internal Medicine Cardiovascular Disease | DX: I25.10 Atherosclerotic heart disease of native coronary artery without angina pectoris (principal); I35.9 Nonrheumatic aortic valve disorder, unspecified; I10 Essential (primary) hypertension; Z95.0 Presence of cardiac pacemaker | CPT/HCPCS: 99214 ==

== ENCOUNTER 2024-12-06 00:32 | Outpatient (CLI) | payer MEDICARE, SELFPAY ==
--- NOTE | 2024-12-06 12:30 | DI.US_ITS ---
APPROVED REPORT EXAM: Comprehensive 2D, Doppler, and color-flow Echocardiogram Patient Location: Out-Patient Patrol Judge: Caterina Albarran RDCS ([facility]) Indications: AV heart block Other Information Study Quality: Adequate Conclusion Normal left ventricular wall thickness and chamber size. Ejection fraction is 55%. There are no segmental wall motion abnormalities Normal right ventricular size and function Both atria are normal in size. The atrial septum is thin and hypermobile Device lead noted in the right heart The aortic valve is bicuspid without stenosis or regurgitation Estimated right ventricular systolic pressure is 22 mmHg Ascending aorta measures 3.6 cm Wall motion Left Ventricle The left ventricle is normal size. The left ventricular systolic function is normal. The left ventricular ejection fraction is within the normal range. There is normal left ventricular wall thickness. There is normal LV segmental wall motion. There is no ventricular septal defect visualized. LVEF is 55%. Right Ventricle The right ventricle is normal size. The right ventricular systolic function is normal. Device lead is present in the right ventricle. Atria The left atrium size is normal. The right atrium size is normal. Atrial septal aneurysm is present. Aortic Valve Aortic valve is bicuspid. There is no aortic valvular stenosis. No aortic regurgitation is present. Mitral Valve The mitral valve is normal in structure. No evidence of mitral valve stenosis. Trace mitral regurgitation. Tricuspid Valve The tricuspid valve is normal in structure. There is no tricuspid valve stenosis. Mild tricuspid regurgitation. The RVSP is 22.2_ mmHg. Pulmonic Valve The pulmonary valve is normal in structure. There is no pulmonic valvular stenosis. Trace pulmonic regurgitation. Great Vessels The aortic root is normal in size. The ascending aorta is mildly dilated. Aortic arch is normal in caliber. IVC is normal in size and collapses >50% with inspiration. Pericardium There is no pericardial effusion. 2D Dimensions IVSD d PLAX 1.20 cm M: 0.6-1.2 Ao Root d 3.72 cm M: 3.1 - 3.7 LVPW d PLAX 1.20 cm M: 0.6 - 1.2 Ao Asc Diam d 3.60 cm M: 2.6 - 3.4 LVID d PLAX 4.43 cm M: 4.2 - 5.8 LVDs 3.18 cm M: 2.5 - 4.0 LV EF Teichholz 54.6 % FS 28.14 % LV EDV (Teich) 88.9 mL LV ESV (Teich) 40.3 mL M-Mode TAPSE 1.68 cm (M/F) >1.7 Auto EF LV EDV A4C 89.0 mL LV EDV A2C 104.7 mL LV EDV BP 96.4 mL LV ESV A4C 41.0 mL LV ESV A2C 50.0 mL LV ESV BP 44.5 mL LVEF(%) A4C 53.9 % LVEF(%) A2C 52.3 % LVEF(%) BP 53.9 % LV SV A4C 48.0 ml LV SV A2C 54.8 ml LV SV BP 52.0 ml LV CO A4C 2.9 L/min LV CO A2C 3.6 L/min LV CO BP 3.2 L/min HR A4C 60.51 BPM HR A2C 65.10 BPM LV EDV Index (BP) LA Volume LA Length A4C 5.0 cm LA Length A2C 4.3 cm LA Area A4C s 13.57 cm2 LA Area A2C s 13.45 cm2 LA Vol A4C A-L 31.32 mL LA Vol A2C A-L 35.53 mL LA Vol Biplane A-L 35.8 mL LA Vol/BSA A4C A-L LA Vol/BSA A2C A-L LA Vol/BSA BP A-L 19.0 mL/m2 LA Vol A4C MOD 29.1 mL LA Vol A2C MOD 32.3 mL LA Vol BP MOD 32.8 mL RA Volume RA Area A4C 18.0 cm2 RA ESV A4C (A-L) 49.0mL RA Vol/BSA A4C A-L RA Length A4C 5.6 cm RA ESV A4C (MOD) 45.6mL LV Diastology MV E' medial 0.067 (>0.07 m/s) MV E Vmax 0.65 (0.4-1.3 m/s) MV E/E' MED 9.72 (<14) MV A Vmax 0.70 (0.4-1.3 m/s) MV E' lateral 0.062 (>0.1 m/s) E/A Ratio 0.9 MV E/E' LAT 10.57 (<14) MV E' Average 0.064 m/s MV E/E'(average) 10.13 Aortic Valve AoV Vmax 1.83 m/s LVOT Vmax 0.81 m/s AoV Peak Grad 13.3 mmHg LVOT Peak Grad 2.6 mmHg AoV Area (Vmax) 1.53 cm2 LVOT VTI 0.179 m AoV VTI 0.423 m LVOT Mean Grad 1.6 mmHg AoV Mean Juventino. 1.37 m/s LVOT SV 61.56 mL AoV Mean Grad 8.4 mmHg LVOT Diam s 2.05 cm AoV Area (VTI) 1.45 cm2 AV Regurg Peak Gr. 13.32 mmHg Velocity Ratio 0.44 Mitral Valve MV DT 164 (160-240 msec) MV Vmax TIPS 0.69 m/s MV Mean Grad 0.9 (<2mmHg) MV VTI 0.245 m Pulmonary Valve PV Vmax 0.81 (0.5-1.5 m/s) RVOT Vmax 0.44 m/s PV Peak Grad 2.6 mmHg RVOT Peak Gr. 0.8 mmHg PV Mean Juventino 0.51 m/s RVOT VTI 0.093 m PV Mean Grad 1.3 mmHg RVOT Mean Gr. 0.4 mmHg Tricuspid Valve RA Pressure 3.00 mmHg TR Vmax 2.19 m/s TV S' 0.10 m/s TR Peak Grad 19.2 mmHg RVSP (TR) 22.2 mmHg
== END 2024-12-06 00:52 ==
LOC: DI 00:32
PROVIDERS: PCP Nurse Practitioner Family; Visit Provider Internal Medicine Cardiovascular Disease
DX: I44.2 Atrioventricular block, complete (principal); Q23.81 Bicuspid aortic valve
CPT/HCPCS: 93306

== ENCOUNTER 2024-12-24 10:34 | Outpatient (CLI) | payer MEDICARE, SELFPAY ==
[2024-12-24 11:30] LABS: Calculated LDL 83 mg/dL (<100); Cholesterol 175 mg/dL (<200); Estimated GFR 77.04 (mL/min/1.73m2); HDL Cholesterol 55 mg/dL (>or=40); Potassium 4.3 mmol/L (3.5-5.1); Triglyceride 189 mg/dL (<150)
[2024-12-24 22:26] LABS: PSA, Screening 0.8 ng/mL (<=6.5)
== END 2024-12-24 10:35 | disposition home or self-care (01) ==
LOC: LBO 10:35
PROVIDERS: PCP Nurse Practitioner Family; Visit Provider Nurse Practitioner Family
DX: Z13.6 Encounter for screening for cardiovascular disorders (principal); Z12.5 Encounter for screening for malignant neoplasm of prostate; I10 Essential (primary) hypertension
CPT/HCPCS: 36415; 80061; 84153; 82565; 84132

== ENCOUNTER → 2025-04-23 09:53 | Outpatient (BNVA) | payer MEDICARE, SELFPAY | PROVIDERS: PCP Nurse Practitioner Family; Referring Provider Nurse Practitioner Family; Visit Provider Registered Nurse | DX: I25.10 Atherosclerotic heart disease of native coronary artery without angina pectoris (principal); Z95.1 Presence of aortocoronary bypass graft; Z45.018 Encounter for adjustment and management of other part of cardiac pacemaker; Z79.02 Long term (current) use of antithrombotics/antiplatelets; Z79.811 Long term (current) use of aromatase inhibitors | CPT/HCPCS: 93280 ==